=== PATIENT | male | born 1975 | race Caucasian/White ===

== ENCOUNTER 2016-06-02 21:41 | Emergency (ER) | payer OTHER, SELFPAY ==
[2016-06-02] MEDS ORDERED: DILAUDID 1 MG/ML INJECTION IV ONE ×2 (22:04→23:00)
[2016-06-02] MEDS ORDERED: Phenergan 25 MG INJ IV ONE (22:04)
--- NOTE | 2016-06-02 22:10 | ERPHSYRPT ---
- History of Present Illness Time Seen by Provider: 06/02/16 21:58 Historian: patient Exam Limitations: no limitations Patient Subjective Stated Complaint: pt states he has been having constipation and abd pain at home. states he has a hx of diverticulitis Triage Nursing Assessment: pt alert and oriented. answers questions approp. skin pink warm and dry. respirations nonlabored with lungs cta. abd soft and tender in lt upper quad. bowel sounds hyper in all 4 quads. pt states he is passing flatus. Physician History: FOR THE PAST 13 HOURS PT HAS HAD CONSTANT SHARP/DULL LEFT SIDED ABDOMINAL PAIN RADIATING TO THE MID BACK WITH DIARRHEA AND URINARY HESITANCY. PT HAS A HX OF DIVERTICULITIS FIRST DIAGNOSED IN 2013. PT DENIES FEVER, CHEST PAIN, RASH. Allergies/Adverse Reactions: No Known Drug Allergies Allergy (Verified 06/02/16 22:01) Home Medications: Omeprazole 20 MG [Prilosec 20 mg] 20 mg PO DAILY 10/31/14 [History] Fiber [Fiber Choice] 1 tab PO DAILY 10/06/15 [History] Lisinopril 20 mg [Zestril 20 MG] 20 mg PO DAILY 06/02/16 [History] Hx Tetanus, Diphtheria Vaccination/Date Given: No Hx Influenza Vaccination/Date Given: No Hx Pneumococcal Vaccination/Date Given: No Immunizations Up to Date: Yes - Review of Systems Constitutional: No Fever Cardiac: No Chest Pain Abdominal/Gastrointestinal: Abdominal Pain, Diarrhea Genitourinary Symptoms: Hesitancy Musculoskeletal: Back Pain Skin: No Rash All Other Systems: Reviewed and Negative - Past Medical History Pertinent Past Medical History: Yes Neurological History: No Pertinent History ENT History: No Pertinent History Cardiac History: Hypertension Respiratory History: No Pertinent History Endocrine Medical History: No Pertinent History Musculoskeletal History: No Pertinent History GI Medical History: Diverticulitis, Diverticulosis, GERD, Hernia History: No Pertinent History Psycho-Social History: No Pertinent History Male Reproductive Disorders: No Pertinent History - Past Surgical History Past Surgical History: Yes Neuro Surgical History: No Pertinent History Cardiac: No Pertinent History Respiratory: No Pertinent History Gastrointestinal: Cholecystectomy, Hernia Repair Genitourinary: No Pertinent History Musculoskeletal: Other Male Surgical History: No Pertinent History Other Surgical History: cyst removed left knee - Social History Smoking Status: Former smoker Exposure to second hand smoke: Yes Drug Use: none Patient Lives Alone: No - Nursing Vital Signs Nursing Vital Signs: Initial Vital Signs Temperature 98.4 F Pulse Rate 83 Respiratory Rate 16 Blood Pressure [] 127/74 Pain Intensity 4 - Physical Exam General Appearance: alert Eye Exam: PERRL/EOMI Ears, Nose, Throat Exam: pharynx normal, moist mucous membranes Neck Exam: normal inspection Respiratory Exam: lungs clear Cardiovascular Exam: normal heart sounds Gastrointestinal/Abdomen Exam: soft, other (B.S. MODERATELY HYPERACTIVE AND NORMOTONIC) Back Exam: normal range of motion Extremity Exam: normal inspection, No pedal edema Neurologic Exam: alert, cooperative Skin Exam: warm, dry SpO2 Interpretation: normal SpO2: 98 Oxygen Delivery: Room Air - Course Nursing assessment & vital signs reviewed: Yes - CT Exams Abdomen/Pelvis CT Interpretation: Tele-radiologist Report (NO ACUTE FINDINGS.) Ordered Tests: Active Orders 24 hr Category Date Time Status Clean Catch Urine Specimen STAT Care 06/02/16 22:04 Active IV Insertion STAT Care 06/02/16 22:04 Active ABDOMEN AND PELVIS W/0 CONTRAS [CT] Stat Exams 06/02/16 22:05 Taken AMYLASE Stat Lab 06/02/16 22:24 Completed BLOOD CULTURE Stat Lab 06/02/16 22:25 Received CBC W DIFF Stat Lab 06/02/16 22:24 Completed CMP Stat Lab 06/02/16 22:24 Completed LIPASE Stat Lab 06/02/16 22:24 Completed UA Stat Lab 06/02/16 22:30 Completed Medication Summary Generic Name Dose Route Start Last Admin Trade Name Freq PRN Reason Stop Dose Admin Hydromorphone HCl 1 mg 06/02/16 23:00 Dilaudid 1 Mg/Ml Injection IV 06/02/16 23:01 STAT ONE Sodium Chloride 1,000 mls @ 200 mls/hr 06/02/16 22:15 06/02/16 22:34 Sodium Chloride 0.9% 1000 Ml IV 07/02/16 22:14 200 mls/hr .Q5H MARIA ISABEL Administration Sodium Chloride 1,000 mls @ 999 mls/hr 06/02/16 23:00 Sodium Chloride 0.9% 1000 Ml IV 06/03/16 00:00 .Q1H1M STA Discontinued Medications Generic Name Dose Route Start Last Admin Trade Name Freq PRN Reason Stop Dose Admin Hydromorphone HCl 1 mg 06/02/16 22:04 06/02/16 22:36 Dilaudid 1 Mg/Ml Injection IV 06/02/16 22:05 1 mg STAT ONE Administration Hydromorphone HCl Confirm 06/02/16 22:19 Dilaudid 1 Mg/Ml Injection Administered 06/02/16 22:20 Dose 1 mg .ROUTE .STK-MED ONE Sodium Chloride Confirm 06/02/16 22:19 Sodium Chloride 0.9% 1000 Ml Administered 06/02/16 22:20 Dose 1,000 mls @ ud .ROUTE .STK-MED ONE Promethazine HCl 12.5 mg 06/02/16 22:04 06/02/16 22:40 Phenergan 25 Mg Inj IV 06/02/16 22:05 12.5 mg STAT ONE Administration Promethazine HCl Confirm 06/02/16 22:18 Phenergan 25 Mg Inj Administered 06/02/16 22:19 Dose 25 mg .ROUTE .STK-MED ONE Lab/Rad Data: Laboratory Result Diagrams 06/02/16 22:24 06/02/16 22:24 Laboratory Results 06/02/16 06/02/16 06/02/16 Range/Units 22:30 22:24 22:24 WBC 8.2 (4.0-10.5) K/mm3 RBC 4.79 (4.1-5.6) M/mm3 Hgb 13.6 (12.5-18.0) gm/dl Hct 40.2 L (42-50) % MCV 83.9 (78-100) fl MCH 28.4 (26-32) pg MCHC 33.8 (32-36) g/dl RDW 14.1 H (11.5-14.0) % Plt Count 342 (150-450) K/mm3 MPV 10.4 H (6-9.5) fl Gran % 59.7 (36.0-66.0) % Lymphocytes % 27.2 (24.0-44.0) % Monocytes % 10.3 (0.0-12.0) % Eosinophils % 2.4 (0.00-5.0) % Basophils % 0.4 (0.0-0.4) % Basophils # 0.03 (0-0.4) Sodium 124 L (136-145) mEq/L Potassium 3.7 (3.5-5.1) mEq/L Chloride 99 (98-107) mEq/L Carbon Dioxide 28.0 (21-32) mEq/L Anion Gap 0.5 L (5-15) MEQ/L BUN 15 (9-20) mg/dL Creatinine 1.08 (0.55-1.30) mg/dl Estimated GFR > 60 ML/MIN Glucose 119 H (70-110) MG/DL Calcium 8.7 (8.5-10.1) mg/dL Total Bilirubin 0.1 L (0.2-1.0) mg/dL AST 11 L (15-37) U/L ALT 17 (12-78) U/L Alkaline Phosphatase 113 (46-116) U/L Serum Total Protein 7.2 (6.4-8.2) gm/dL Albumin 3.2 L (3.4-5.0) g/dL Amylase 34 (25-115) U/L Lipase 133 (73-393) U/L Ur Collection Type CLEAN CATCH Urine Color YELLOW (YELLOW) Urine Appearance CLEAR (CLEAR) Urine pH 7.5 (5-6) Ur Specific [place] 1.015 (1.005-1.025) Urine Protein NEGATIVE (Negative) Urine Glucose (UA) NEGATIVE (NEGATIVE) mg/dL Urine Ketones NEGATIVE (NEGATIVE) Urine Nitrite NEGATIVE (NEGATIVE) Urine Bilirubin NEGATIVE (NEGATIVE) Urine Urobilinogen 0.2 (0-1) mg/dL Urine WBC (Auto) NEGATIVE (NEGATIVE) Urine RBC (Auto) NEGATIVE (0-5) Be/ul Specimen Received 06/02/160 - Departure Time of Disposition: 23:02 Departure Disposition: Home Clinical Impression: ABDOMINAL PAIN, DIARRHEA, HYPONATREMIA Condition: Fair Critical Care Time: No Instructions: Abdominal Pain-Adult Additional Instructions: FOLLOW UP WITH PRIVATE DOCTOR TOMORROW.
[2016-06-02] MEDS ORDERED: Sodium Chloride 0.9% 1000 ML 1,000 ML IV SCH (22:15)
[2016-06-02] MEDS ORDERED: Phenergan 25 MG INJ ONE (22:18)
[2016-06-02] MEDS ORDERED: Sodium Chloride 0.9% 1000 ML 1,000 ML ONE (22:19)
[2016-06-02] MEDS ORDERED: DILAUDID 1 MG/ML INJECTION ONE ×2 (22:19→23:06)
[2016-06-02 22:25] LABS: BASOPHIL % 0.4 % (0.0-0.4); Eosinophil % 2.4 % (0.00-5.0); Granulocytes % 59.7 % (36.0-66.0); Lymphocytes % 27.2 % (24.0-44.0); Mean Cell Volume 83.9 fl (78-100); Mean Corpuscular Hemoglobin 28.4 pg (26-32); Mean Platelet Volume 10.4 fl (6-9.5); Monocytes % 10.3 % (0.0-12.0); Platelet Count 342 K/mm3 (150-450); Red Blood Count 4.79 M/mm3 (4.1-5.6); Red Cell Distribution Width 14.1 % (11.5-14.0); White Blood Count 8.2 K/mm3 (4.0-10.5)
[2016-06-02 22:31] LABS: COMPLETE URINE MICROSCOPIC? NO; Collection Type CLEAN CATCH; Ph 7.5 (5-6)
[2016-06-02 22:59] LABS: ALBUMIN 3.2 g/dL (3.4-5.0); ALKALINE PHOSPHATASE 113 U/L (46-116); ANION GAP 0.5 MEQ/L (5-15); BILIRUBIN,TOTAL 0.1 mg/dL (0.2-1.0); BLOOD UREA NITROGEN 15 mg/dL (9-20); CHLORIDE 99 mEq/L (98-107); Glucose 119 MG/DL (70-110); LIPASE 133 U/L (73-393); Potassium 3.7 mEq/L (3.5-5.1); SGOT/AST 11 U/L (15-37); SGPT/ALT 17 U/L (12-78); SODIUM 124 mEq/L (136-145); Total Protein 7.2 gm/dL (6.4-8.2)
[2016-06-02] MEDS ORDERED: Sodium Chloride 0.9% 1000 ML 1,000 ML IV STA (23:00)
[2016-06-03 00:21] VITALS: BP 136/78; PULSE 88; O2SAT 99
--- NOTE | 2016-06-03 08:38 | XRAY ---
Indication: Left abdominal and low back pain. Nausea and diarrhea. History of diverticulitis. Multiple contiguous axial images obtained through the abdomen and pelvis without contrast as ordered. Comparison: August 19, 2015 Lung bases remain clear with stable lingular calcified granuloma. Heart is not enlarged. Stomach is again distended with food/fluid. Noncontrasted bowel loops appear nonobstructed. Again scattered colonic diverticulosis without diverticulitis. Normal appendix. There has been interval cholecystectomy. No free fluid/air. Remaining liver, pancreas, spleen, adrenal glands, kidneys, ureters, bladder, and aorta appear unremarkable for noncontrast exam. Osseous structures intact with stable left L4 spondylolysis without spondylolisthesis. Impression: 1. No acute intra-abdominal/pelvic abnormalities on this noncontrast exam. 2. Stable colonic diverticulosis and left L4 spondylolysis. Comment: Preliminary interpretation was made by [facility]. No discrepancy. CT DI 23.68
== END 2016-06-03 00:21 | disposition home or self-care (01) ==
LOC: ED 21:41
DX: R10.9 Unspecified abdominal pain (principal); R19.7 Diarrhea, unspecified; E87.1 Hypo-osmolality and hyponatremia; Z79.899 Other long term (current) drug therapy; I10 Essential (primary) hypertension
CPT/HCPCS: 36000; 36415; 74176; 80053; 81002; 82150; 83690; 85025; 87040; 96360; 96361; 96374; 96375; 99283; J1170; J2550

== ENCOUNTER 2016-08-20 18:14 | Emergency (ER) | payer OTHER, SELFPAY ==
[2016-08-20 19:00] LABS: BASOPHIL % 0.2 % (0.0-0.4); Eosinophil % 1.8 % (0.00-5.0); Granulocytes % 71.4 % (36.0-66.0); Lymphocytes % 15.7 % (24.0-44.0); Mean Cell Volume 83.9 fl (78-100); Mean Platelet Volume 10.4 fl (6-9.5); Monocytes % 10.9 % (0.0-12.0); Platelet Count 279 K/mm3 (150-450); Red Blood Count 4.66 M/mm3 (4.1-5.6); Red Cell Distribution Width 14.1 % (11.5-14.0); White Blood Count 9.4 K/mm3 (4.0-10.5)
[2016-08-20 19:07] LABS: Collection Type CLEAN CATCH
[2016-08-20 19:08] LABS: COMPLETE URINE MICROSCOPIC? NO
[2016-08-20] MEDS ORDERED: Zofran 4 MG/2 ML VIAL IV ONE (19:10)
[2016-08-20] MEDS ORDERED: Sodium Chloride 0.9% 1000 ML 1,000 ML IV STA (19:10)
[2016-08-20] MEDS ORDERED: Zofran 4 MG/2 ML VIAL ONE (19:15)
[2016-08-20] MEDS ORDERED: Sodium Chloride 0.9% 1000 ML 1,000 ML ONE (19:15)
[2016-08-20 19:18] LABS: ALBUMIN 3.6 g/dL (3.4-5.0); ALKALINE PHOSPHATASE 93 U/L (46-116); ANION GAP 13.8 MEQ/L (5-15); BILIRUBIN,TOTAL 0.5 mg/dL (0.2-1.0); BLOOD UREA NITROGEN 13 mg/dL (9-20); CHLORIDE 99 mEq/L (98-107); Carbon Dioxide 26.6 mEq/L (21-32); Glucose 143 MG/DL (70-110); LIPASE 83 U/L (73-393); Potassium 3.5 mEq/L (3.5-5.1); SGOT/AST 13 U/L (15-37); SGPT/ALT 27 U/L (12-78); SODIUM 136 mEq/L (136-145); Total Protein 8.1 gm/dL (6.4-8.2)
--- NOTE | 2016-08-20 19:18 | ERPHSYRPT ---
- History of Present Illness Time Seen by Provider: 08/20/16 19:15 Historian: patient Exam Limitations: no limitations Patient Subjective Stated Complaint: pt states he has a Hx of Diverticulitis and thinks he may be having symptoms of that. denies any fever. states he has pain across lower abdomen worse in left lower quad. Triage Nursing Assessment: pt pink, warm, dry. abdomen soft tender left lower quad. bowel sounds present in all 4 quads. Physician History: 89-year-old male came to the emergency room with complaining of abdominal pain generalized last few days. Patient pain got worse in last 2 days. Patient is complaining of pain mainly in the left upper quadrant. Patient denies any nausea vomiting but complaining of constipation. Timing/Duration: yesterday Quality: cramping Abdominal Pain Onset Location: LUQ, generalized abdomen Pain Radiation: no radiation Severity of Pain-Max: moderate Severity of Pain-Current: moderate Modifying Factors: Improves With: nothing Associated Symptoms: denies symptoms Previous symptoms: same symptoms as today Allergies/Adverse Reactions: No Known Drug Allergies Allergy (Verified 08/20/16 18:43) Home Medications: Omeprazole 20 MG [Prilosec 20 mg] 20 mg PO DAILY 10/31/14 [History] Fiber [Fiber Choice] 1 tab PO DAILY 10/06/15 [History] Lisinopril 20 mg [Zestril 20 MG] 20 mg PO DAILY 06/02/16 [History] Docosahexanoic Acid [Atabex Dha 200] 200 mg PO DAILY 08/20/16 [History] Hx Tetanus, Diphtheria Vaccination/Date Given: Yes ([place]) Hx Influenza Vaccination/Date Given: No Hx Pneumococcal Vaccination/Date Given: No Immunizations Up to Date: Yes - Review of Systems Constitutional: No Symptoms Eyes: No Symptoms Ears, Nose, & Throat: No Symptoms Respiratory: No Symptoms Cardiac: No Symptoms Abdominal/Gastrointestinal: Abdominal Pain, Constipation Genitourinary Symptoms: No Symptoms Musculoskeletal: No Symptoms Skin: No Symptoms Neurological: No Symptoms - Past Medical History Pertinent Past Medical History: Yes Neurological History: No Pertinent History ENT History: No Pertinent History Cardiac History: Hypertension Respiratory History: No Pertinent History Endocrine Medical History: No Pertinent History Musculoskeletal History: No Pertinent History GI Medical History: Diverticulitis, Diverticulosis, GERD, Hernia History: No Pertinent History Psycho-Social History: No Pertinent History Male Reproductive Disorders: No Pertinent History - Past Surgical History Past Surgical History: Yes Neuro Surgical History: No Pertinent History Cardiac: No Pertinent History Respiratory: No Pertinent History Gastrointestinal: Cholecystectomy, Hernia Repair Genitourinary: No Pertinent History Musculoskeletal: Other Male Surgical History: No Pertinent History Other Surgical History: cyst removed left knee - Social History Smoking Status: Former smoker Exposure to second hand smoke: No Drug Use: none Patient Lives Alone: No - Nursing Vital Signs Nursing Vital Signs: Initial Vital Signs Temperature 98.1 F Temperature Source Oral Pulse Rate 90 Respiratory Rate 18 Blood Pressure [Right Arm] 154/94 Pain Intensity 7 - Physical Exam General Appearance: no apparent distress, alert Eye Exam: PERRL/EOMI, eyes nml inspection Ears, Nose, Throat Exam: normal ENT inspection, pharynx normal, moist mucous membranes Neck Exam: normal inspection, non-tender, supple, full range of motion Respiratory Exam: normal breath sounds, lungs clear, No respiratory distress Cardiovascular Exam: regular rate/rhythm, normal heart sounds Gastrointestinal/Abdomen Exam: soft, normal bowel sounds, No tenderness, No distention, No mass, No guarding, No ecchymosis, No pulsatile mass, No rebound, No hepatomegaly, No organomegaly, No splenomegaly Rectal Exam: deferred Back Exam: normal inspection, normal range of motion, No CVA tenderness, No vertebral tenderness Extremity Exam: normal inspection, normal range of motion, pelvis stable Neurologic Exam: alert, oriented x 3, cooperative, normal mood/affect, nml cerebellar function, sensation nml, No motor deficits Skin Exam: normal color, warm, dry SpO2: 99 Oxygen Delivery: Room Air - Course Nursing assessment & vital signs reviewed: Yes Ordered Tests: Active Orders 24 hr Category Date Time Status Clean Catch Urine Specimen STAT Care 08/20/16 18:41 Active IV Insertion STAT Care 08/20/16 18:41 Active CBC W DIFF Stat Lab 08/20/16 18:56 Completed CMP Stat Lab 08/20/16 18:56 Completed LIPASE Stat Lab 08/20/16 18:56 Completed Lactic Acid Urgent Lab 08/20/16 19:10 Completed UA Stat Lab 08/20/16 18:56 Completed Urine Triage Profile Stat Lab 08/20/16 19:10 Completed Medication Summary Generic Name Dose Route Start Last Admin Trade Name Freq PRN Reason Stop Dose Admin Sodium Chloride 1,000 mls @ 999 mls/hr 08/20/16 19:10 08/20/16 19:20 Sodium Chloride 0.9% 1000 Ml IV 08/20/16 20:10 999 mls/hr .Q1H1M STA Administration Morphine Sulfate 4 mg 08/20/16 19:53 Morphine Sulfate 4 Mg Inj IV 08/20/16 19:54 STAT ONE Discontinued Medications Generic Name Dose Route Start Last Admin Trade Name Anupam PRN Reason Stop Dose Admin Sodium Chloride Confirm 08/20/16 19:15 Sodium Chloride 0.9% 1000 Ml Administered 08/20/16 19:16 Dose 1,000 mls @ ud .ROUTE .STK-MED ONE Ondansetron HCl 4 mg 08/20/16 19:10 08/20/16 19:20 Zofran 4 Mg/2 Ml Vial IV 08/20/16 19:11 4 mg STAT ONE Administration Ondansetron HCl Confirm 08/20/16 19:15 Zofran 4 Mg/2 Ml Vial Administered 08/20/16 19:16 Dose 4 mg .ROUTE .STK-MED ONE Lab/Rad Data: Laboratory Result Diagrams 08/20/16 18:56 08/20/16 18:56 Laboratory Results 08/20/16 08/20/16 08/20/16 Range/Units 19:10 19:10 18:56 WBC (4.0-10.5) K/mm3 RBC (4.1-5.6) M/mm3 Hgb (12.5-18.0) gm/dl Hct (42-50) % MCV (78-100) fl MCH (26-32) pg MCHC (32-36) g/dl RDW (11.5-14.0) % Plt Count (150-450) K/mm3 MPV (6-9.5) fl Gran % (36.0-66.0) % Lymphocytes % (24.0-44.0) % Monocytes % (0.0-12.0) % Eosinophils % (0.00-5.0) % Basophils % (0.0-0.4) % Basophils # (0-0.4) Sodium 136 (136-145) mEq/L Potassium 3.5 (3.5-5.1) mEq/L Chloride 99 (98-107) mEq/L Carbon Dioxide 26.6 (21-32) mEq/L Anion Gap 13.8 (5-15) MEQ/L BUN 13 (9-20) mg/dL Creatinine 0.90 (0.55-1.30) mg/dl Estimated GFR > 60 ML/MIN Glucose 143 H (70-110) MG/DL Lactic Acid 0.9 (0.4-2.0) Calcium 8.8 (8.5-10.1) mg/dL Total Bilirubin 0.5 (0.2-1.0) mg/dL AST 13 L (15-37) U/L ALT 27 (12-78) U/L Alkaline Phosphatase 93 (46-116) U/L Serum Total Protein 8.1 (6.4-8.2) gm/dL Albumin 3.6 (3.4-5.0) g/dL Lipase 83 (73-393) U/L Ur Collection Type Urine Color (YELLOW) Urine Appearance (CLEAR) Urine pH (5-6) Ur Specific [place] (1.005-1.025) Urine Protein (Negative) Urine Glucose (UA) (NEGATIVE) mg/dL Urine Ketones (NEGATIVE) Urine Nitrite (NEGATIVE) Urine Bilirubin (NEGATIVE) Urine Urobilinogen (0-1) mg/dL Urine WBC (Auto) (NEGATIVE) Urine RBC (Auto) (0-5) Be/ul Urine Opiates Level NEG. (NEGATIVE) Ur Methadone NEG. (NEGATIVE) Urine Barbiturates NEG. (NEGATIVE) Ur Phencyclidine (PCP) NEG. (NEGATIVE) Urine Amphetamine NEG. (NEGATIVE) U Benzodiazepine Level NEG. (NEGATIVE) Urine Cocaine NEG. (NEGATIVE) Urine Marijuana (THC) NEG. (NEGATIVE) Specimen Received 08/20/16 08/20/16 Range/Units 18:56 18:56 WBC 9.4 (4.0-10.5) K/mm3 RBC 4.66 (4.1-5.6) M/mm3 Hgb 13.5 (12.5-18.0) gm/dl Hct 39.1 L (42-50) % MCV 83.9 (78-100) fl MCH 29.0 (26-32) pg MCHC 34.5 (32-36) g/dl RDW 14.1 H (11.5-14.0) % Plt Count 279 (150-450) K/mm3 MPV 10.4 H (6-9.5) fl Gran % 71.4 H (36.0-66.0) % Lymphocytes % 15.7 L (24.0-44.0) % Monocytes % 10.9 (0.0-12.0) % Eosinophils % 1.8 (0.00-5.0) % Basophils % 0.2 (0.0-0.4) % Basophils # 0.02 (0-0.4) Sodium (136-145) mEq/L Potassium (3.5-5.1) mEq/L Chloride (98-107) mEq/L Carbon Dioxide (21-32) mEq/L Anion Gap (5-15) MEQ/L BUN (9-20) mg/dL Creatinine (0.55-1.30) mg/dl Estimated GFR ML/MIN Glucose (70-110) MG/DL Lactic Acid (0.4-2.0) Calcium (8.5-10.1) mg/dL Total Bilirubin (0.2-1.0) mg/dL AST (15-37) U/L ALT (12-78) U/L Alkaline Phosphatase (46-116) U/L Serum Total Protein (6.4-8.2) gm/dL Albumin (3.4-5.0) g/dL Lipase (73-393) U/L Ur Collection Type CLEAN CATCH Urine Color YELLOW (YELLOW) Urine Appearance CLEAR (CLEAR) Urine pH 7.0 (5-6) Ur Specific [place] 1.015 (1.005-1.025) Urine Protein NEGATIVE (Negative) Urine Glucose (UA) NEGATIVE (NEGATIVE) mg/dL Urine Ketones NEGATIVE (NEGATIVE) Urine Nitrite NEGATIVE (NEGATIVE) Urine Bilirubin NEGATIVE (NEGATIVE) Urine Urobilinogen 0.2 (0-1) mg/dL Urine WBC (Auto) NEGATIVE (NEGATIVE) Urine RBC (Auto) NEGATIVE (0-5) Be/ul Urine Opiates Level (NEGATIVE) Ur Methadone (NEGATIVE) Urine Barbiturates (NEGATIVE) Ur Phencyclidine (PCP) (NEGATIVE) Urine Amphetamine (NEGATIVE) U Benzodiazepine Level (NEGATIVE) Urine Cocaine (NEGATIVE) Urine Marijuana (THC) (NEGATIVE) Specimen Received 08/20/16 1900 - Progress Progress: improved Counseled pt/family regarding: lab results, diagnosis, need for follow-up - Departure Time of Disposition: 19:58 Departure Disposition: Home Clinical Impression: Abdominal pain in male, Diverticul disease small and large intestine, no perforati or abscess Condition: Stable Critical Care Time: Yes Critical Care Time(excluding separately billable procedures): 30-74 minutes Referrals: WALI LONDON [Primary Care Provider] - Instructions: Abdominal Pain-Adult, Diverticulitis Additional Instructions: ABDOMINAL PAIN 1. There are several different causes for abdominal pain, some of which may not be able to be identified on initial examination. 2. The important thing to remember is that bodily functions can change in a short period of time. If you notice any of the following symptoms, return to the emergency department or consult your doctor immediately: A. Worsening pain or no improvement in the next 12 hours. B. Increasing, severe abdominal pain C. Blood in stool D. Black stools E. Persistent vomiting F. Fever or chills or other symptoms. Continue antibiotics Dr London prescribed. Prescriptions: Dicyclomine HCl 20 mg [Bentyl 20 mg] 20 mg PO TID #15 tablet
[2016-08-20] MEDS ORDERED: MORPHINE SULFATE 4 MG INJ IV ONE (19:53)
[2016-08-20] MEDS ORDERED: MORPHINE SULFATE 4 MG INJ ONE (20:03)
[2016-08-20] MEDS ORDERED: ROCEPHIN 1 Gm-D5w 50 ml Bag** 50 ML IV ONE ×2 (20:04)
[2016-08-20] MEDS ORDERED: Hydromorphone 1 mg/ml Ampule IV ONE (20:18)
[2016-08-20] MEDS ORDERED: Hydromorphone 1 mg/ml Ampule ONE (20:45)
[2016-08-20 21:14] VITALS: BP 149/74; PULSE 100; O2SAT 96
== END 2016-08-20 21:14 | disposition home or self-care (01) ==
LOC: ED 18:14
DX: R10.9 Unspecified abdominal pain (principal); K57.12 Diverticulitis of small intestine without perforation or abscess without bleeding; K57.32 Diverticulitis of large intestine without perforation or abscess without bleeding; R10.12 Left upper quadrant pain; R10.84 Generalized abdominal pain; Z79.899 Other long term (current) drug therapy
CPT/HCPCS: 36000; 36415; 80053; 80307; 81002; 83605; 83690; 85025; 96360; 96365; 96374; 96375; 99284; J0696; J1170; J2270; J2405

== ENCOUNTER 2017-05-01 12:08 | Emergency (ER) | payer BC, OTHER ==
--- NOTE | 2017-05-01 12:39 | ERPHSYRPT ---
- History of Present Illness Time Seen by Provider: 05/01/17 12:33 Historian: patient Exam Limitations: no limitations Patient Subjective Stated Complaint: states lower abd pain for two days. states has hx diverticulosis. denies n/v/d. Triage Nursing Assessment: skin w/d, color normal, resp easy. abd large, round. abd soft, tender in lower abd. normal bowel sounds. Physician History: The patient is a 41-year-old male with his complaining of mild abdominal pain that began yesterday. It continues today. It is moved from his upper abdomen than down to the lower abdomen. He is concerned that he is having a flareup of diverticulitis. He denies nausea, vomiting, or diarrhea. He had a normal bowel movement yesterday and had a small one today. He had chills last night. His past medical history is significant for diverticulitis, hypertension , GERD, cholecystectomy, and hernia repair. Timing/Duration: yesterday, gradual onset Activities at Onset: none Quality: aching Abdominal Pain Onset Location: RLQ, LLQ Pain Radiation: back Severity of Pain-Max: mild Severity of Pain-Current: mild Modifying Factors: Improves With: nothing Associated Symptoms: denies symptoms, No diarrhea Previous symptoms: same symptoms as today Allergies/Adverse Reactions: No Known Drug Allergies Allergy (Verified 05/01/17 12:19) Home Medications: Omeprazole 20 MG [Prilosec 20 mg] 20 mg PO DAILY 10/31/14 [History] Fiber [Fiber Choice] 1 tab PO DAILY 10/06/15 [History] Lisinopril 20 mg [Zestril 20 MG] 20 mg PO DAILY 06/02/16 [History] Hx Tetanus, Diphtheria Vaccination/Date Given: Yes (2016) Hx Influenza Vaccination/Date Given: Yes Hx Pneumococcal Vaccination/Date Given: No - Review of Systems Constitutional: Chills Eyes: No Symptoms Ears, Nose, & Throat: No Symptoms Respiratory: No Cough, No Dyspnea Cardiac: No Chest Pain, No Edema, No Syncope Abdominal/Gastrointestinal: Abdominal Pain, No Nausea, No Vomiting, No Diarrhea Genitourinary Symptoms: No Dysuria Musculoskeletal: No Back Pain, No Neck Pain Skin: No Rash Neurological: No Dizziness, No Focal Weakness, No Sensory Changes Psychological: No Symptoms Endocrine: No Symptoms Hematologic/Lymphatic: No Symptoms Immunological/Allergic: No Symptoms All Other Systems: Reviewed and Negative - Past Medical History Pertinent Past Medical History: Yes Neurological History: No Pertinent History ENT History: No Pertinent History Cardiac History: Hypertension Respiratory History: No Pertinent History Endocrine Medical History: No Pertinent History Musculoskeletal History: No Pertinent History GI Medical History: Diverticulitis, Diverticulosis, GERD, Hernia History: No Pertinent History Psycho-Social History: No Pertinent History Male Reproductive Disorders: No Pertinent History - Past Surgical History Past Surgical History: Yes Neuro Surgical History: No Pertinent History Cardiac: No Pertinent History Respiratory: No Pertinent History Gastrointestinal: Cholecystectomy, Hernia Repair Genitourinary: No Pertinent History Musculoskeletal: Other Male Surgical History: No Pertinent History Other Surgical History: cyst removed left knee - Social History Smoking Status: Current some day smoker Exposure to second hand smoke: No Drug Use: none Patient Lives Alone: No - Nursing Vital Signs Nursing Vital Signs: Initial Vital Signs Temperature 97.4 F 05/01/17 12:14 Pulse Rate 87 05/01/17 12:14 Respiratory Rate 16 05/01/17 12:14 Blood Pressure 143/83 05/01/17 12:14 O2 Sat by Pulse Oximetry 96 05/01/17 12:14 Pain Scale Pain Intensity 2 - Physical Exam General Appearance: no apparent distress, alert Eye Exam: PERRL/EOMI, eyes nml inspection Ears, Nose, Throat Exam: normal ENT inspection, pharynx normal, moist mucous membranes Neck Exam: normal inspection, non-tender, supple, full range of motion Respiratory Exam: normal breath sounds, lungs clear, No respiratory distress Cardiovascular Exam: regular rate/rhythm, normal heart sounds Gastrointestinal/Abdomen Exam: soft, other (hyperactive BS) Rectal Exam: not done Back Exam: normal inspection, normal range of motion, No CVA tenderness, No vertebral tenderness Extremity Exam: normal inspection, normal range of motion, pelvis stable Neurologic Exam: alert, oriented x 3, cooperative, normal mood/affect, nml cerebellar function, sensation nml, No motor deficits Skin Exam: normal color, warm, dry SpO2 Interpretation: normal SpO2: 96 Oxygen Delivery: Room Air - CT Exams Abdomen/Pelvis CT Interpretation: Tele-radiologist Report, Normal Appendix, Other (No diverticulitis. Possible mesenteric panniculitis. Per Dr Arcos) Ordered Tests: Active Orders 24 hr Category Date Time Status IV Insertion STAT Care 05/01/17 12:42 Active ABDOMEN AND PELVIS W/0 CONTRAS [CT] Stat Exams 05/01/17 12:42 Taken CBC W DIFF Stat Lab 05/01/17 12:30 Completed CMP Stat Lab 05/01/17 12:30 Completed LIPASE Stat Lab 05/01/17 12:30 Completed Lactic Acid Stat Lab 05/01/17 12:42 Completed UA W/RFX UR CULTURE Stat Lab 05/01/17 12:42 Completed Medication Summary Discontinued Medications Generic Name Dose Route Start Last Admin Trade Name Anupam PRN Reason Stop Dose Admin Sodium Chloride 1,000 mls @ 999 mls/hr 05/01/17 12:42 05/01/17 13:07 Sodium Chloride 0.9% 1000 Ml IV 05/01/17 13:42 999 mls/hr .Q1H1M STA Administration Sodium Chloride Confirm 05/01/17 12:52 Sodium Chloride 0.9% 1000 Ml Administered 05/01/17 12:53 Dose 1,000 mls @ ud .ROUTE .STK-MED ONE Ketorolac Tromethamine 30 mg 05/01/17 12:42 05/01/17 13:07 Toradol 30 Mg Injection IV 05/01/17 12:43 30 mg STAT ONE Administration Ketorolac Tromethamine Confirm 05/01/17 12:52 Toradol 30 Mg Injection Administered 05/01/17 12:53 Dose 30 mg .ROUTE .STK-MED ONE Potassium Chloride 10 meq 05/01/17 13:33 05/01/17 13:55 Klor Con 10 Meq PO 05/01/17 13:34 10 meq STAT ONE Administration Potassium Chloride Confirm 05/01/17 13:53 Klor Con 10 Meq Administered 05/01/17 13:54 Dose 10 meq PO .STK-MED ONE Lab/Rad Data: Laboratory Result Diagrams 05/01/17 12:30 05/01/17 12:30 Laboratory Results 05/01/17 05/01/17 05/01/17 Range/Units 12:42 12:42 12:30 WBC (4.0-10.5) K/mm3 RBC (4.1-5.6) M/mm3 Hgb (12.5-18.0) gm/dl Hct (42-50) % MCV (78-100) fl MCH (26-32) pg MCHC (32-36) g/dl RDW (11.5-14.0) % Plt Count (150-450) K/mm3 MPV (6-9.5) fl Gran % (36.0-66.0) % Lymphocytes % (24.0-44.0) % Monocytes % (0.0-12.0) % Eosinophils % (0.00-5.0) % Basophils % (0.0-0.4) % Basophils # (0-0.4) Sodium 135 L (136-145) mEq/L Potassium 3.4 L (3.5-5.1) mEq/L Chloride 103 (98-107) mEq/L Carbon Dioxide 23.2 (21-32) mEq/L Anion Gap 12.5 (5-15) MEQ/L BUN 16 (9-20) mg/dL Creatinine 0.99 (0.55-1.30) mg/dl Estimated GFR > 60 ML/MIN Glucose 122 H (70-110) MG/DL Lactic Acid 0.9 (0.4-2.0) Calcium 8.1 L (8.5-10.1) mg/dL Total Bilirubin 0.40 (0.2-1.0) mg/dL AST 12 L (15-37) U/L ALT 24 (12-78) U/L Alkaline Phosphatase 88 (46-116) U/L Serum Total Protein 7.2 (6.4-8.2) gm/dL Albumin 3.3 L (3.4-5.0) g/dL Lipase 68 L (73-393) U/L Ur Collection Type VOID Urine Color YELLOW (YELLOW) Urine Appearance CLEAR (CLEAR) Urine pH 5.0 (5-6) Ur Specific [place] 1.005 (1.005-1.025) Urine Protein NEGATIVE (Negative) Urine Ketones NEGATIVE (NEGATIVE) Urine Blood NEGATIVE (0-5) Be/ul Urine Nitrite NEGATIVE (NEGATIVE) Urine Bilirubin NEGATIVE (NEGATIVE) Urine Urobilinogen NORMAL (0-1) mg/dL Ur Leukocyte Esterase NEGATIVE (NEGATIVE) Urine Culture Reflexed NO (NO) Urine Glucose NEGATIVE (NEGATIVE) mg/dL Specimen Received 05/01/17 1300 05/01/17 Range/Units 12:30 WBC 7.7 (4.0-10.5) K/mm3 RBC 4.79 (4.1-5.6) M/mm3 Hgb 13.7 (12.5-18.0) gm/dl Hct 40.6 L (42-50) % MCV 84.8 (78-100) fl MCH 28.6 (26-32) pg MCHC 33.7 (32-36) g/dl RDW 13.5 (11.5-14.0) % Plt Count 254 (150-450) K/mm3 MPV 10.6 H (6-9.5) fl Gran % 80.5 H (36.0-66.0) % Lymphocytes % 11.1 L (24.0-44.0) % Monocytes % 7.5 (0.0-12.0) % Eosinophils % 0.8 (0.00-5.0) % Basophils % 0.1 (0.0-0.4) % Basophils # 0.01 (0-0.4) Sodium (136-145) mEq/L Potassium (3.5-5.1) mEq/L Chloride (98-107) mEq/L Carbon Dioxide (21-32) mEq/L Anion Gap (5-15) MEQ/L BUN (9-20) mg/dL Creatinine (0.55-1.30) mg/dl Estimated GFR ML/MIN Glucose (70-110) MG/DL Lactic Acid (0.4-2.0) Calcium (8.5-10.1) mg/dL Total Bilirubin (0.2-1.0) mg/dL AST (15-37) U/L ALT (12-78) U/L Alkaline Phosphatase (46-116) U/L Serum Total Protein (6.4-8.2) gm/dL Albumin (3.4-5.0) g/dL Lipase (73-393) U/L Ur Collection Type Urine Color (YELLOW) Urine Appearance (CLEAR) Urine pH (5-6) Ur Specific [place] (1.005-1.025) Urine Protein (Negative) Urine Ketones (NEGATIVE) Urine Blood (0-5) Be/ul Urine Nitrite (NEGATIVE) Urine Bilirubin (NEGATIVE) Urine Urobilinogen (0-1) mg/dL Ur Leukocyte Esterase (NEGATIVE) Urine Culture Reflexed (NO) Urine Glucose (NEGATIVE) mg/dL Specimen Received - Progress Progress: improved Counseled pt/family regarding: lab results, diagnosis, need for follow-up, rad results - Departure Time of Disposition: 14:02 Departure Disposition: Home Clinical Impression: Abdominal pain, Mesenteric panniculitis, Hypokalemia Condition: Stable Critical Care Time: No Referrals: WALI MONTERO [Primary Care Provider] - Additional Instructions: You have abdominal pain and hypo-kalemia. On the CT scan of your abdomen and pelvis there is possible evidence for mesenteric panniculitis. You were given Toradol 30 mg and fluids by IV in the ER. You were also given potassium 10 mEq orally. Continue to take Tylenol as needed. Follow up tomorrow.
[2017-05-01] MEDS ORDERED: TORAdol 30 mg Injection IV ONE (12:42)
[2017-05-01] MEDS ORDERED: Sodium Chloride 0.9% 1000 ML 1,000 ML IV STA (12:42)
[2017-05-01 12:52] LABS: BASOPHIL % 0.1 % (0.0-0.4); Eosinophil % 0.8 % (0.00-5.0); Granulocytes % 80.5 % (36.0-66.0); Lymphocytes % 11.1 % (24.0-44.0); Mean Cell Volume 84.8 fl (78-100); Mean Corpuscular Hemoglobin 28.6 pg (26-32); Mean Platelet Volume 10.6 fl (6-9.5); Monocytes % 7.5 % (0.0-12.0); Platelet Count 254 K/mm3 (150-450); Red Blood Count 4.79 M/mm3 (4.1-5.6); Red Cell Distribution Width 13.5 % (11.5-14.0); White Blood Count 7.7 K/mm3 (4.0-10.5)
[2017-05-01] MEDS ORDERED: TORAdol 30 mg Injection ONE (12:52)
[2017-05-01] MEDS ORDERED: Sodium Chloride 0.9% 1000 ML 1,000 ML ONE (12:52)
[2017-05-01 13:01] LABS: ALBUMIN 3.3 g/dL (3.4-5.0); ALKALINE PHOSPHATASE 88 U/L (46-116); ANION GAP 12.5 MEQ/L (5-15); BLOOD UREA NITROGEN 16 mg/dL (9-20); CHLORIDE 103 mEq/L (98-107); Carbon Dioxide 23.2 mEq/L (21-32); Glucose 122 MG/DL (70-110); LIPASE 68 U/L (73-393); Potassium 3.4 mEq/L (3.5-5.1); SGOT/AST 12 U/L (15-37); SGPT/ALT 24 U/L (12-78); SODIUM 135 mEq/L (136-145); Total Protein 7.2 gm/dL (6.4-8.2)
[2017-05-01 13:16] LABS: ADD URINE CULTURE? NO (NO); Bilirubin NEGATIVE (NEGATIVE); Blood NEGATIVE Ery/ul (0-5); COMPLETE URINE MICROSCOPIC? NO; Collection Type VOID; Glucose NEGATIVE (NEGATIVE); Leukocyte Esterase NEGATIVE (NEGATIVE)
[2017-05-01] MEDS ORDERED: Klor Con 10 MEQ PO ONE ×2 (13:33→13:53)
[2017-05-01 14:19] VITALS: BP 124/77; PULSE 77; O2SAT 100
--- NOTE | 2017-05-01 20:10 | XRAY ---
Indication: Left lower pelvic pain. History of diverticulitis. Multiple contiguous axial images obtained through the abdomen and pelvis without contrast as ordered. Comparison: June 02, 2016. Lung bases remain clear with stable lingular calcified granuloma. Heart is not enlarged. Noncontrasted bowel loops appear nonobstructed. Again scattered colonic diverticulosis without diverticulitis. Normal appendix. Again previous cholecystectomy. No free fluid/air. Remaining liver, pancreas, spleen, adrenal glands, kidneys, ureters, bladder, and aorta appear unremarkable for noncontrast exam. Osseous structures intact with stable left L4 spondylolysis without spondylolisthesis. Impression: 1. Stable colonic diverticulosis and left L4 spondylolysis. 2. No new/acute intra-abdominal/pelvic abnormalities on this noncontrast exam. Comment: Preliminary interpretation was made by [facility]. No discrepancy. CT DI 23.68
== END 2017-05-01 14:19 | disposition home or self-care (01) ==
LOC: ED 12:08
DX: R10.31 Right lower quadrant pain (principal); R10.32 Left lower quadrant pain; K65.4 Sclerosing mesenteritis; E87.6 Hypokalemia; I10 Essential (primary) hypertension
CPT/HCPCS: 36000; 36415; 74176; 80053; 81002; 83605; 83690; 85025; 96360; 96374; 99284; J1885; A9270-GY

== ENCOUNTER 2018-04-26 16:10 | Emergency (ER) | payer BC ==
[2018-04-26] MEDS ORDERED: TORAdol 30 mg Injection IV ONE (16:27)
[2018-04-26] MEDS ORDERED: Sodium Chloride 0.9% 1000 ML 1,000 ML IV STA (16:27)
--- NOTE | 2018-04-26 16:37 | ERPHSYRPT ---
- History of Present Illness Time Seen by Provider: 04/26/18 16:27 Historian: patient Exam Limitations: no limitations Patient Subjective Stated Complaint: Pain in left lower and upper quadrant, pain with palpatation, steady pain that doesn't go away Triage Nursing Assessment: Pt c/o of left lower and upper quadrant pain in the abdomen, pain with palpatation, steady pain that doesn't go away, diarhea with not much being expelled, tachycardic, denies N&V, pulses normal, bowel sounds heard in all 4 quadrants, denies any issues with urinating, no food intake today due to the pain, hx of diverticulosis Physician History: This is a 42-year-old white male with history of high blood pressure, diverticulitis, diverticulosis, GERD, hernia Patient arrives with complaints of pain in his left flank radiating down to his left the abdomen upper and lower, described as crampy and constant symptoms since last night. Patient denies any nausea vomiting urinary symptoms no blood in his urine. Past medical history includes high blood pressure, diverticulitis, diverticulosis, GERD, ventral hernia Past surgical history includes cholecystectomy, hernia repair, cyst removed from the patient's left knee Social history negative tobacco positive occasional alcohol use Timing/Duration: yesterday Activities at Onset: none Quality: cramping Abdominal Pain Onset Location: LUQ, LLQ, flank Pain Radiation: LUQ, LLQ, flank (left flank) Severity of Pain-Max: moderate Severity of Pain-Current: moderate Modifying Factors: Improves With: nothing Associated Symptoms: back (left flank pain), diarrhea, No chest pain, No diaphoresis, No fever/chills, No fatigue, No headache, No heartburn, No loss of appetite, No nausea, No neck pain, No rash, No shortness of breath, No syncope, No testicular pain, No vomiting, No weakness Previous symptoms: same symptoms as today (similar symptoms with diverticulitis) Allergies/Adverse Reactions: No Known Drug Allergies Allergy (Verified 04/26/18 16:24) Home Medications: Omeprazole 20 MG [Prilosec 20 mg] 20 mg PO DAILY 10/31/14 [History] Fiber [Fiber Choice] 1 tab PO DAILY 10/06/15 [History] Lisinopril 20 mg [Zestril 20 MG] 20 mg PO DAILY 06/02/16 [History] Lactobacillus Combo No.10 [Probiotic] 1 each PO DAILY 04/26/18 [History] Hx Tetanus, Diphtheria Vaccination/Date Given: Yes (2016) Hx Influenza Vaccination/Date Given: Yes Hx Pneumococcal Vaccination/Date Given: No - Review of Systems Constitutional: No Fever, No Chills Eyes: No Symptoms Ears, Nose, & Throat: No Symptoms Respiratory: No Cough, No Dyspnea Cardiac: No Chest Pain, No Edema, No Syncope Abdominal/Gastrointestinal: Abdominal Pain (Left-sided abdominal pain), Diarrhea , No Nausea, No Vomiting, No Constipation, No Hematemesis, No Hematochezia, No Melena, No Dysphagia, No Appetite Changes Genitourinary Symptoms: Flank Pain (Left flank pain), No Dysuria, No Frequency, No Hematuria, No Hesitancy, No Incontinence, No Urgency, No Urinary Retention, No Testicle Pain, No Penile Discharge Musculoskeletal: No Back Pain, No Neck Pain Skin: No Rash Neurological: No Dizziness, No Focal Weakness, No Sensory Changes Psychological: No Symptoms Endocrine: No Symptoms All Other Systems: Reviewed and Negative - Past Medical History Pertinent Past Medical History: Yes Neurological History: No Pertinent History ENT History: No Pertinent History Cardiac History: Hypertension Respiratory History: No Pertinent History Endocrine Medical History: No Pertinent History Musculoskeletal History: No Pertinent History GI Medical History: Diverticulitis, Diverticulosis, GERD, Hernia History: No Pertinent History Psycho-Social History: No Pertinent History Male Reproductive Disorders: No Pertinent History - Past Surgical History Past Surgical History: Yes Neuro Surgical History: No Pertinent History Cardiac: No Pertinent History Respiratory: No Pertinent History Gastrointestinal: Cholecystectomy, Hernia Repair Genitourinary: No Pertinent History Musculoskeletal: Other Male Surgical History: No Pertinent History Other Surgical History: cyst removed left knee - Social History Smoking Status: Light tobacco smoker Exposure to second hand smoke: Yes Drug Use: none Patient Lives Alone: No - Nursing Vital Signs Nursing Vital Signs: Initial Vital Signs Temperature 98.6 F 04/26/18 16:12 Pulse Rate 111 H 04/26/18 16:12 Blood Pressure 144/90 04/26/18 16:12 O2 Sat by Pulse Oximetry 96 04/26/18 16:12 Pain Scale Pain Intensity 8 - Physical Exam General Appearance: moderate distress, alert, obese, other (well-developed white male , moderate distress alert oriented 3) Eye Exam: PERRL/EOMI, eyes nml inspection Ears, Nose, Throat Exam: normal ENT inspection, pharynx normal, moist mucous membranes Neck Exam: normal inspection, non-tender, supple, full range of motion Respiratory Exam: normal breath sounds, lungs clear, No respiratory distress Cardiovascular Exam: regular rate/rhythm, normal heart sounds Gastrointestinal/Abdomen Exam: soft, tenderness (Left lower quadrant tenderness) , No distention, No mass, No guarding, No ecchymosis, No pulsatile mass, No rebound, No hernia, No hepatomegaly, No organomegaly, No splenomegaly Back Exam: CVA tenderness (Left flank tenderness), No normal range of motion, No vertebral tenderness, No rash, No decreased range of motion, No muscle spasm , No point tenderness Extremity Exam: normal inspection Neurologic Exam: alert, oriented x 3, cooperative, travograph operator II-XII nml as tested, normal mood/affect, nml cerebellar function, sensation nml, No motor deficits Skin Exam: normal color, warm, dry SpO2 Interpretation: normal (96%) SpO2: 96 Oxygen Delivery: Room Air - Course Nursing assessment & vital signs reviewed: Yes - CT Exams Abdomen/Pelvis CT Interpretation: Discussed w/radiologist (CT abdomen and pelvis: Impression: 1. Again scattered diverticulosis. New finding of mild diverticulitis involving the distal descending colon with small free fluid. No perforation or abscess. 2. Stable L5 spondylolysis without spondylolisthesi and left lung base calcified granuloma. Remaining CT abdomen/pelvis without contrast exam is negative.) Ordered Tests: Active Orders 24 hr Category Date Time Status IV Insertion STAT Care 04/26/18 16:27 Active ABDOMEN AND PELVIS W/0 CONTRAS [CT] Stat Exams 04/26/18 16:32 Completed AMYLASE Stat Lab 04/26/18 16:54 Completed CBC W DIFF Stat Lab 04/26/18 16:54 Completed CMP Stat Lab 04/26/18 16:54 Completed LIPASE Stat Lab 04/26/18 16:54 Completed Lactic Acid Stat Lab 04/26/18 16:55 Completed UA W/RFX UR CULTURE Stat Lab 04/26/18 16:46 Completed Medication Summary Discontinued Medications Generic Name Dose Route Start Last Admin Trade Name Freq PRN Reason Stop Dose Admin Hydromorphone HCl 1 mg 04/26/18 17:11 04/26/18 17:17 Hydromorphone 1 Mg/Ml Ampule IV 04/26/18 17:12 1 mg STAT ONE Administration Hydromorphone HCl Confirm 04/26/18 17:15 Hydromorphone 1 Mg/Ml Ampule Administered 04/26/18 17:16 Dose 1 mg .ROUTE .STK-MED ONE Sodium Chloride 1,000 mls @ 999 mls/hr 04/26/18 16:27 04/26/18 17:57 Sodium Chloride 0.9% 1000 Ml IV 04/26/18 17:27 Infused .Q1H1M STA Infusion Sodium Chloride Confirm 04/26/18 16:43 Sodium Chloride 0.9% 1000 Ml Administered 04/26/18 16:44 Dose 1,000 mls @ ud .ROUTE .STK-MED ONE Ampicillin Sodium/Sulbactam Sodium 3 gm in 100 mls @ 200 mls/hr 04/26/18 17: 12 04/26/18 17:58 Unasyn 3gm / Nacl 100ml IV 04/26/18 17:41 Infused STAT STA Infusion Ampicillin Sodium/Sulbactam Sodium Confirm 04/26/18 17:16 Unasyn 3gm / Nacl 100ml Administered 04/26/18 17:17 Dose 3 gm in 100 mls @ ud .ROUTE .STK-MED ONE Ketorolac Tromethamine 30 mg 04/26/18 16:27 04/26/18 16:45 Toradol 30 Mg Injection IV 04/26/18 16:28 30 mg STAT ONE Administration Ketorolac Tromethamine Confirm 04/26/18 16:43 Toradol 30 Mg Injection Administered 04/26/18 16:44 Dose 30 mg .ROUTE .STK-MED ONE Lab/Rad Data: Laboratory Result Diagrams 04/26/18 16:54 04/26/18 16:54 Laboratory Results 04/26/18 04/26/18 04/26/18 Range/Units 16:55 16:54 16:54 WBC 9.8 (4.0-10.5) K/mm3 RBC 5.13 (4.1-5.6) M/mm3 Hgb 14.6 (12.5-18.0) gm/dl Hct 42.6 (42-50) % MCV 83.0 (78-100) fl MCH 28.5 (26-32) pg MCHC 34.3 (32-36) g/dl RDW 13.5 (11.5-14.0) % Plt Count 305 (150-450) K/mm3 MPV 10.7 H (6-9.5) fl Gran % 75.0 H (36.0-66.0) % Eos # (Auto) 0.09 (0-0.5) Absolute Lymphs (auto) 1.45 (1.0-4.6) Absolute Monos (auto) 0.90 (0.0-1.3) Lymphocytes % 14.8 L (24.0-44.0) % Monocytes % 9.2 (0.0-12.0) % Eosinophils % 0.9 (0.00-5.0) % Basophils % 0.1 (0.0-0.4) % Absolute Granulocytes 7.37 H (1.4-6.9) Basophils # 0.01 (0-0.4) Sodium 135 L (137-145) mmol/L Potassium 3.8 (3.5-5.1) mmol/L Chloride 96 L (98-107) mmol/L Carbon Dioxide 29 (22-30) mmol/L Anion Gap 14.0 (5-15) MEQ/L BUN 13 (9-20) mg/dL Creatinine 0.74 (0.66-1.25) mg/dL Estimated GFR > 60.0 ML/MIN Glucose 115 H (74-106) mg/dL Lactic Acid 1.3 (0.4-2.0) Calcium 9.8 (8.4-10.2) mg/dL Total Bilirubin 0.90 (0.2-1.3) mg/dL AST 16 L (17-59) U/L ALT 23 (0-50) U/L Alkaline Phosphatase 108 (38-126) U/L Serum Total Protein 8.6 H (6.3-8.2) g/dL Albumin 4.7 (3.5-5.0) g/dL Amylase 59 (30-110) U/L Lipase 17 L (23-300) U/L Urine Color (YELLOW) Urine Appearance (CLEAR) Urine pH (5-6) Ur Specific [place] (1.005-1.025) Urine Protein (Negative) Urine Ketones (NEGATIVE) Urine Blood (0-5) Be/ul Urine Nitrite (NEGATIVE) Urine Bilirubin (NEGATIVE) Urine Urobilinogen (0-1) mg/dL Ur Leukocyte Esterase (NEGATIVE) Urine WBC (Auto) (0-5) /HPF Urine RBC (Auto) (0-2) /HPF U Epithel Cells (Auto) (FEW) /HPF Urine Bacteria (Auto) (NEGATIVE) /HPF Urine Culture Reflexed (NO) Urine Glucose (NEGATIVE) mg/dL 04/26/18 Range/Units 16:46 WBC (4.0-10.5) K/mm3 RBC (4.1-5.6) M/mm3 Hgb (12.5-18.0) gm/dl Hct (42-50) % MCV (78-100) fl MCH (26-32) pg MCHC (32-36) g/dl RDW (11.5-14.0) % Plt Count (150-450) K/mm3 MPV (6-9.5) fl Gran % (36.0-66.0) % Eos # (Auto) (0-0.5) Absolute Lymphs (auto) (1.0-4.6) Absolute Monos (auto) (0.0-1.3) Lymphocytes % (24.0-44.0) % Monocytes % (0.0-12.0) % Eosinophils % (0.00-5.0) % Basophils % (0.0-0.4) % Absolute Granulocytes (1.4-6.9) Basophils # (0-0.4) Sodium (137-145) mmol/L Potassium (3.5-5.1) mmol/L Chloride (98-107) mmol/L Carbon Dioxide (22-30) mmol/L Anion Gap (5-15) MEQ/L BUN (9-20) mg/dL Creatinine (0.66-1.25) mg/dL Estimated GFR ML/MIN Glucose (74-106) mg/dL Lactic Acid (0.4-2.0) Calcium (8.4-10.2) mg/dL Total Bilirubin (0.2-1.3) mg/dL AST (17-59) U/L ALT (0-50) U/L Alkaline Phosphatase (38-126) U/L Serum Total Protein (6.3-8.2) g/dL Albumin (3.5-5.0) g/dL Amylase (30-110) U/L Lipase (23-300) U/L Urine Color STRAW (YELLOW) Urine Appearance CLEAR (CLEAR) Urine pH 6.0 (5-6) Ur Specific [place] 1.006 (1.005-1.025) Urine Protein NEGATIVE (Negative) Urine Ketones NEGATIVE (NEGATIVE) Urine Blood NEGATIVE (0-5) Be/ul Urine Nitrite NEGATIVE (NEGATIVE) Urine Bilirubin NEGATIVE (NEGATIVE) Urine Urobilinogen NEGATIVE (0-1) mg/dL Ur Leukocyte Esterase NEGATIVE (NEGATIVE) Urine WBC (Auto) NONE (0-5) /HPF Urine RBC (Auto) NONE (0-2) /HPF U Epithel Cells (Auto) NONE (FEW) /HPF Urine Bacteria (Auto) NONE (NEGATIVE) /HPF Urine Culture Reflexed NO (NO) Urine Glucose NEGATIVE (NEGATIVE) mg/dL - Progress Progress: improved Progress Note: 04/26/18 18:11 This is a 42-year-old white male with history of high blood pressure, diverticulitis, diverticulosis, GERD, hernia he arrives with complaint of abdominal pain left flank radiating left side symptoms since yesterday he has had no vomiting he does have some diarrhea he has had no fevers. Patient with a CT of the abdomen which is remarkable for scattered colonic diverticulosis and a new finding of mild diverticulitis involving the distal descending colon with small free fluid. No perforation or abscess patient's white count is normal at 9.8 hemoglobin 14.6 hematocrit 42.6 platelets are 305 patient's urinalysis is unremarkable patient's chemistry is remarkable for a sodium of 135 potassium 3.8 chloride 96 bicarbonate 29 BUN 13 creatinine 0.74 glucose is 1:15 Patient is given hydromorphone 1 mg IV, Zofran 4 mg IV and normal saline 1 L IV. Patient states he is feeling better and is essentially pain-free at this time he did express a little concerned about going home because he was worried his pain might return. The patient appeared to be stable I discussed case with Dr. Cyr it was felt that the patient could be safely discharged on Augmentin 500 mg 3 times a day for 10 days and [place] as needed for pain. Will discharge patient diagnosis diverticulitis, left-sided abdominal pain. Will send him home with [place], Augmentin, place patient on clear fluids patient is to follow-up with Dr. London he is to call in the morning to arrange follow- up. He is of course to return for acute distress or for severe symptoms. - Departure Time of Disposition: 18:15 Departure Disposition: Home Clinical Impression: Diverticulitis, Left sided abdominal pain Condition: Fair Critical Care Time: No Referrals: WALI LONDON [Primary Care Provider] - Additional Instructions: Return home. Plenty of fluids. Clear fluids only 24-48 hours. [place] as prescribed. Augmentin as prescribed. Contact Dr. London tomorrow and arrange follow-up. Return for acute distress or for severe symptoms. Prescriptions: Amox Tr/Potass Clav. 500 mg [Augmentin 500-125 Tablet] 500 mg PO TID #30 tablet Hydrocodone/Acetaminophen [[place] 5-325 Tablet] 1 tab PO Q4-6HPRN PRN #15 tablet MDD 6 tablets PRN Reason: Pain
[2018-04-26] MEDS ORDERED: Sodium Chloride 0.9% 1000 ML 1,000 ML ONE (16:43)
[2018-04-26] MEDS ORDERED: TORAdol 30 mg Injection ONE (16:43)
[2018-04-26 16:47] LABS: BASOPHIL % 0.1 % (0.0-0.4); Basophil (Absolute #) 0.01 (0-0.4); Eosinophil % 0.9 % (0.00-5.0); Eosinophil (Absolute #) 0.09 (0-0.5); Granulocyte Absolute (ANC) 7.37 (1.4-6.9); Hematocrit 42.6 % (42-50); Hemoglobin 14.6 gm/dl (12.5-18.0); Lymphocyte (Absolute #) 1.45 (1.0-4.6); Lymphocytes % 14.8 % (24.0-44.0); Mean Corpuscular Hemoglobin 28.5 pg (26-32); Mean Corpuscular Hgb Concent. 34.3 g/dl (32-36); Mean Platelet Volume 10.7 fl (6-9.5); Monocytes % 9.2 % (0.0-12.0); Platelet Count 305 K/mm3 (150-450); Red Blood Count 5.13 M/mm3 (4.1-5.6); Red Cell Distribution Width 13.5 % (11.5-14.0); White Blood Count 9.8 K/mm3 (4.0-10.5)
--- NOTE | 2018-04-26 17:02 | XRAY ---
Indication: Left abdomen pain. Multiple contiguous axial images obtained through the abdomen and pelvis without contrast as ordered. Comparison: May 01, 2017. Lung bases demonstrate stable lingular calcified granuloma. No infiltrate or effusion. Heart is not enlarged. Noncontrasted stomach and bowel loops appear nonobstructed. Normal appendix. Again mild scattered colonic diverticulosis. Distal descending colon demonstrates new short segment of mild diverticulitis. Tiny free fluid but no walled off fluid collection or free air. Again previous cholecystectomy. Remaining liver, pancreas, spleen, adrenal glands, kidneys, ureters, bladder, and aorta appear unremarkable for noncontrast exam. Osseous structures intact with stable left L4 spondylolysis without spondylolisthesis. No ventral or inguinal hernias. Impression: 1. Again scattered colonic diverticulosis. New finding mild diverticulitis involving the distal descending colon with small free fluid. No perforation or abscess. 2. Stable L5 spondylolysis without spondylolisthesis and left lung base calcified granuloma. 3. Remaining CT abdomen/pelvis without contrast exam is negative. CT DI 34.69
[2018-04-26] MEDS ORDERED: Hydromorphone 1 mg/ml Ampule IV ONE (17:11)
[2018-04-26] MEDS ORDERED: Unasyn 3GM / NaCl 100ML 3 GM/100 ML IVPB IV STA (17:12)
[2018-04-26] MEDS ORDERED: Hydromorphone 1 mg/ml Ampule ONE (17:15)
[2018-04-26] MEDS ORDERED: Unasyn 3GM / NaCl 100ML 3 GM/100 ML IVPB ONE (17:16)
[2018-04-26 17:26] LABS: ALBUMIN 4.7 g/dL (3.5-5.0); ALKALINE PHOSPHATASE 108 U/L (38-126); AMYLASE 59 U/L (30-110); BLOOD UREA NITROGEN 13 mg/dL (9-20); CHLORIDE 96 mmol/L (98-107); Calcium 9.8 mg/dL (8.4-10.2); Carbon Dioxide 29 mmol/L (22-30); Creatinine 1 0.74 mg/dL (0.66-1.25); Glucose 115 mg/dL (74-106); LIPASE 17 U/L (23-300); Potassium 3.8 mmol/L (3.5-5.1); SGOT/AST 16 U/L (17-59); SGPT/ALT 23 U/L (0-50); SODIUM 135 mmol/L (137-145); Total Protein 8.6 g/dL (6.3-8.2)
[2018-04-26 17:27] LABS: Appearance CLEAR (CLEAR); Bilirubin NEGATIVE (NEGATIVE); Blood NEGATIVE Ery/ul (0-5); Glucose NEGATIVE (NEGATIVE); Ketones NEGATIVE (NEGATIVE); Leukocyte Esterase NEGATIVE (NEGATIVE); Nitrite NEGATIVE (NEGATIVE); Protein,Urine Dip NEGATIVE (Negative); Specific Gravity 1.006 (1.005-1.025); Urobilinogen NEGATIVE mg/dL (0-1)
[2018-04-26 18:20] VITALS: BP 134/84; PULSE 88; O2SAT 99
== END 2018-04-26 18:29 | disposition home or self-care (01) ==
LOC: ED 16:10
DX: K57.32 Diverticulitis of large intestine without perforation or abscess without bleeding (principal); R19.7 Diarrhea, unspecified; Z79.899 Other long term (current) drug therapy; F17.200 Nicotine dependence, unspecified, uncomplicated
CPT/HCPCS: 36415; 74176; 80053; 81001; 82150; 83605; 83690; 85025; 96360; 96374; 96375; 99284; J0295; J1170; J1885

== ENCOUNTER 2022-01-25 20:02 | Emergency (ER) | payer BC, SELFPAY ==
[2022-01-25 20:11] VITALS: O2SAT 97
--- NOTE | 2022-01-25 20:33 | ERPHSYRPT ---
- History of Present Illness Time Seen by Provider: 01/25/22 20:20 Source: patient Exam Limitations: no limitations Patient Subjective Stated Complaint: I've had a few dizzy spells today and pain across my forehead and into the back of my neck like pressure. Triage Nursing Assessment: pt ambulated into ER without diff, spouse at bedside. Pt alert and oriented x4. Pt c/o headache across his k[place], episcopal and to the back of his neck. Pt had a few episodes of dizziness today with tingling down the left side of jaw into lips. No facial droop noted, pt c/o some nausea but no vomiting. Pt denies any loc. Pt c/o left shoulder being tight. No weakness noted. Physician History: This is a obese 46-year-old white male patient of Dr. London who has noticed intermittent dizziness for over a month. Episodes are becoming more frequent and the worst symptoms of dizziness were this morning. He has had intermittent dizziness today. He denies chest pain. He denies shortness of air. Patient has a history of hyperlipidemia and gastroesophageal reflux disease as well as hypertension. Timing/Duration: intermittent, worse, other (More frequent episodes) Severity: mild (To moderate) Modifying Factors: Improves With: nothing Associated Symptoms: headaches (Described as a pressure), No chest pain, No fever Allergies/Adverse Reactions: No Known Drug Allergies Allergy (Verified 01/25/22 20:22) Home Medications: Omeprazole 20 MG [Prilosec 20 mg] 20 mg PO DAILY 10/31/14 [History] Fiber [Fiber Choice] 1 tab PO DAILY 10/06/15 [History] Lisinopril 20 mg [Zestril 20 MG] 20 mg PO DAILY 06/02/16 [History] Lactobacillus Combo No.10 [Probiotic] 1 each PO DAILY 04/26/18 [History] Atorvastatin Calcium 20 mg PO DAILY 01/25/22 [History] Phentermine HCl 1 tab PO DAILY 01/25/22 [History] Tirzepatide [Mounjaro] 5 mg SQ WEEKLY 01/25/22 [History] Hx Tetanus, Diphtheria Vaccination/Date Given: Yes Hx Influenza Vaccination/Date Given: No Hx Pneumococcal Vaccination/Date Given: No Immunizations Up to Date: Yes Travel Risk - International Travel Have you traveled outside of the country in past 3 weeks: No - Coronavirus Screening Are you exhibiting any of the following symptoms?: Yes Symptoms: Headaches/Body Aches/Fatigue Close contact with a COVID-19 positive Pt in past 14-21 Days: No - Vaccine Status Have you recieved a Covid-19 vaccination: No - Review of Systems Constitutional: No Symptoms Eyes: No Symptoms Ears, Nose, & Throat: No Symptoms Respiratory: No Symptoms Cardiac: No Symptoms Abdominal/Gastrointestinal: No Symptoms Genitourinary Symptoms: No Symptoms Musculoskeletal: No Symptoms Skin: No Symptoms Neurological: Dizziness, Headache Psychological: No Symptoms, Hallucinations Hematologic/Lymphatic: No Symptoms Immunological/Allergic: No Symptoms All Other Systems: Reviewed and Negative - Past Medical History Pertinent Past Medical History: Yes Neurological History: No Pertinent History ENT History: No Pertinent History Cardiac History: High Cholesterol, Hypertension Respiratory History: No Pertinent History Endocrine Medical History: No Pertinent History Musculoskeletal History: No Pertinent History GI Medical History: Diverticulitis, Diverticulosis, GERD, Gallbladder Disease, Hernia History: No Pertinent History Psycho-Social History: No Pertinent History Male Reproductive Disorders: No Pertinent History Other Medical History: concussion as a child - Past Surgical History Past Surgical History: Yes Neuro Surgical History: No Pertinent History Cardiac: No Pertinent History Respiratory: No Pertinent History Gastrointestinal: Cholecystectomy, Hernia Repair Genitourinary: No Pertinent History Musculoskeletal: Other Male Surgical History: No Pertinent History Other Surgical History: cyst removed left knee - Social History Smoking Status: Current every day smoker How long have you smoked: 18 yrs Exposure to second hand smoke: Yes Drug Use: none Patient Lives Alone: No - Nursing Vital Signs Nursing Vital Signs: Initial Vital Signs Temperature 97.7 F 01/25/22 20:09 Pulse Rate 89 01/25/22 20:09 Respiratory Rate 17 01/25/22 20:09 Blood Pressure 141/83 01/25/22 20:09 O2 Sat by Pulse Oximetry 97 01/25/22 20:09 Pain Scale Pain Intensity 2 - Physical Exam General Appearance: no apparent distress, alert, anxiety, obese Eye Exam: PERRL/EOMI, eyes nml inspection Ears, Nose, Throat Exam: normal ENT inspection, moist mucous membranes Neck Exam: normal inspection, non-tender, supple, full range of motion Respiratory Exam: normal breath sounds, lungs clear, airway intact, No chest tenderness, No respiratory distress Cardiovascular Exam: regular rate/rhythm, normal heart sounds, normal peripheral pulses Gastrointestinal/Abdomen Exam: soft, normal bowel sounds, No tenderness Rectal Exam: not done Back Exam: normal inspection, normal range of motion, No CVA tenderness, No vertebral tenderness Extremity Exam: normal inspection, normal range of motion, pelvis stable Neurologic Exam: alert, oriented x 3, cooperative, rewind operator II-XII nml as tested, normal mood/affect, nml cerebellar function, nml station & gait, sensation nml Skin Exam: normal color, warm, dry Lymphatic Exam: No adenopathy SpO2 Interpretation: normal SpO2: 97 O2 Delivery: Room Air - Course Nursing assessment & vital signs reviewed: Yes Ordered Tests: Active Orders 24 hr Category Date Time Status Clean Catch Urine Specimen STAT Care 01/25/22 21:00 Active HEAD WITHOUT CONTRAST [CT] Stat Exams 01/25/22 20:33 Taken UA W/RFX CULTURE Stat Lab 01/25/22 21:20 Completed Urine Triage Profile Stat Lab 01/25/22 21:20 Completed Lab/Rad Data: Laboratory Results 01/25/22 01/25/22 01/25/22 Range/Units Unknown 21:20 21:20 Urinalys Dipstick Clnc MAIN LAB Urine Color YELLOW (YELLOW) Urine Appearance CLEAR (CLEAR) Urine pH 6.0 (5-6) Ur Specific [place] <=1.005 (1.005-1.025) POC Urine Protein Conf NEGATIVE (Negative) Urine Ketones NEGATIVE (NEGATIVE) Urine Nitrite NEGATIVE (NEGATIVE) Urine Bilirubin NEGATIVE (NEGATIVE) Urine Urobilinogen 0.2 (0-1) mg/dL Urine Leukocytes NEGATIVE (NEGATIVE) Urine WBC (Auto) NONE (0-5) /HPF Urine RBC (Auto) NONE (0-2) /HPF U Epithel Cells (Auto) RARE (FEW) /HPF Urine Bacteria (Auto) Not Reportable Urine RBC NEGATIVE (0-5) Be/ul Ur Culture Indicated? NO Urine Glucose NEGATIVE (NEGATIVE) mg/dL Urine Opiates Level NEGATIVE (NEGATIVE) Ur Methadone NEGATIVE (NEGATIVE) Urine Barbiturates NEGATIVE (NEGATIVE) Ur Phencyclidine (PCP) NEGATIVE (NEGATIVE) Urine Amphetamine NEGATIVE (NEGATIVE) U Benzodiazepine Level NEGATIVE (NEGATIVE) Urine Cocaine NEGATIVE (NEGATIVE) Urine Marijuana (THC) NEGATIVE (NEGATIVE) Influenza Type A Ag NEGATIVE (NEGATIVE) Influenza Type B Ag NEGATIVE (NEGATIVE) RSV (PCR) NEGATIVE (Negative) SARS-CoV-2 (PCR) NEGATIVE (NEGATIVE) - Progress Progress: unchanged Progress Note: 01/25/22 21:59 CAT scan of the head without contrast shows left maxillary sinus infection. In addition there is right maxillary sinus and right ethmoid sinus infections present as well. Counseled pt/family regarding: diagnosis, need for follow-up, rad results - Departure Departure Disposition: Home Clinical Impression: Sinusitis Condition: Stable Critical Care Time: No Referrals: WALI LONDON [Primary Care Provider] - Follow up/PCP as directed Additional Instructions: Take your antibiotics as prescribed. Follow-up with your primary care provider for further evaluation and management. Prescriptions: Prednisone 10 mg [Deltasone 10 mg] 10 mg PO TID #12 tablet Azithromycin 250 mg [Zithromax 250 MG TABLET] 250 mg PO ZPACK #4 tablet
[2022-01-25 21:15] LABS: Epithelial Cells RARE /HPF (FEW)
[2022-01-25 21:21] LABS: INFLUENZA A NEGATIVE (NEGATIVE); INFLUENZA B NEGATIVE (NEGATIVE); RESPIRATORY SYNCTIAL VIRUS NEGATIVE (Negative); SARS-CoV-2 Xpert Express NEGATIVE (NEGATIVE)
[2022-01-25 21:27] LABS: Amphetamine,Urine NEGATIVE (NEGATIVE); Barbiturate,Urine NEGATIVE (NEGATIVE); Benzodiazepine,Urine NEGATIVE (NEGATIVE); Cocaine,Urine NEGATIVE (NEGATIVE); Methadone,Urine NEGATIVE (NEGATIVE); Opiate,Urine NEGATIVE (NEGATIVE); PCP,Urine NEGATIVE (NEGATIVE); THC,Urine NEGATIVE (NEGATIVE)
[2022-01-25 21:43] LABS: Appearance CLEAR (CLEAR); Bilirubin NEGATIVE (NEGATIVE); Glucose NEGATIVE (NEGATIVE); Ketones NEGATIVE (NEGATIVE); RBC NEGATIVE Ery/ul (0-5); Specific Gravity <=1.005 (1.005-1.025)
[2022-01-25 21:44] LABS: Dipstick done @ ? MAIN LAB; Nitrite NEGATIVE (NEGATIVE); Protein,Urine Dip NEGATIVE (Negative); Urine Cultured Indicated? NO; Urobilinogen 0.2 mg/dL (0-1)
[2022-01-25] MEDS ORDERED: DELTASONE 20 MG PO ONE (22:01)
[2022-01-25] MEDS ORDERED: Zithromax 250 MG TABLET PO ONE (22:01)
[2022-01-25] MEDS ORDERED: DELTASONE 20 MG ONE (22:05)
[2022-01-25] MEDS ORDERED: Zithromax 250 MG TABLET ONE (22:05)
[2022-01-25 22:11] VITALS: BP 125/75; PULSE 78
--- NOTE | 2022-01-26 23:01 | XRAY ---
Exam: CT of the head without IV contrast from 01/25/2022. CTDI: 53.92 mGy Comparison: CT of the head without IV contrast from 03/21/2014. Indication: Dizziness; tooth extraction 3 weeks ago per patient. Technique: Non-IV contrast axial images were obtained through the brain. Reconstructed coronal and sagittal images were created and reviewed. Findings: The ventricles appear of normal size and configuration. No focal mass effect or midline shift is seen. No acute intracranial bleed or abnormal extra-axial fluid collection is seen. The griffiths matter-white matter interfaces are well preserved. No focal low attenuation lesion is seen to suggest an ischemic infarct or focal edema. The cortical sulci and basilar cisterns appear unremarkable. The calvarium of the skull appears intact. I note almost complete opacification of the left maxillary sinus representing an unfavorable change. There is also moderate mucosal thickening within the inferior right maxillary sinus and mild right ethmoid sinus mucosal thickening. The sphenoid sinus and frontal sinuses appear clear. No air-fluid levels are seen. The mastoids are clear without effusion. The internal auditory canals appear symmetric. The middle ear cavities appear unremarkable. The orbits appear grossly unremarkable. Impression: 1. The CT of the brain appears unremarkable representing no change from 03/21/2014. 2. However, there is evidence of moderate chronic sinus disease/sinusitis as compared to the prior CT study from 03/21/2014, as detailed above. No air-fluid levels are seen.
== END 2022-01-25 22:17 | disposition home or self-care (01) ==
LOC: ED 20:02
DX: J32.8 Other chronic sinusitis (principal); R42 Dizziness and giddiness; R51.9 Headache, unspecified; E78.5 Hyperlipidemia, unspecified; I10 Essential (primary) hypertension; Z72.0 Tobacco use; Z79.899 Other long term (current) drug therapy; Z79.52 Long term (current) use of systemic steroids; Z28.310 Unvaccinated for COVID-19
CPT/HCPCS: 0241U; 70450; 80307; 81015; 99283; A9270-GY

== ENCOUNTER 2022-02-21 22:24 | Emergency (ER) | payer BC, SELFPAY ==
[2022-02-22] MEDS ORDERED: Zofran 4 MG/2 ML VIAL IV ONE (00:07)
[2022-02-22] MEDS ORDERED: Sodium Chloride 0.9% 1000 ML 1,000 ML IV STA (00:07)
[2022-02-22] MEDS ORDERED: FLAGYL 500 MG IVPB 500 MG/100 ML BAG IV STA (00:11)
[2022-02-22] MEDS ORDERED: LEVOFLOXACIN 750MG/150ML D5W 750 MG/150 ML BAG IV STA (00:12)
[2022-02-22] MEDS ORDERED: Hydromorphone 1 mg/ml Injection IV ONE (00:13)
--- NOTE | 2022-02-22 00:21 | ERPHSYRPT ---
- History of Present Illness Time Seen by Provider: 02/22/22 00:18 Historian: patient, family Exam Limitations: no limitations Patient Subjective Stated Complaint: pt has bee having pain in abdomen on left side, states he has a history of diverticulitis and it feels as though he is having the same symptoms as he has before. has had diarrhea, and vomiting and belching Triage Nursing Assessment: pt alert and oriented, moaninig in pain and holding abdomen, states he has pain 8/10 in abdomen Physician History: pt has hx diverticulitis and has had LLQ pain same as prior episodes for the last 2 days, with emesis x1. LLQtenderness on exam. Timing/Duration: yesterday Activities at Onset: none Quality: cramping, sharpness Abdominal Pain Onset Location: LLQ Pain Radiation: LLQ Severity of Pain-Max: moderate Modifying Factors: Improves With: nothing Associated Symptoms: nausea, vomiting Previous symptoms: same symptoms as today Allergies/Adverse Reactions: No Known Drug Allergies Allergy (Verified 01/25/22 20:22) Home Medications: Omeprazole 20 MG [Prilosec 20 mg] 20 mg PO DAILY 10/31/14 [History] Fiber [Fiber Choice] 1 tab PO DAILY 10/06/15 [History] Lisinopril 20 mg [Zestril 20 MG] 20 mg PO DAILY 06/02/16 [History] Lactobacillus Combo No.10 [Probiotic] 1 each PO DAILY 04/26/18 [History] Atorvastatin Calcium 20 mg PO DAILY 01/25/22 [History] Phentermine HCl 1 tab PO DAILY 01/25/22 [History] Tirzepatide [Mounjaro] 5 mg SQ WEEKLY 01/25/22 [History] Hx Tetanus, Diphtheria Vaccination/Date Given: Yes Hx Influenza Vaccination/Date Given: No Hx Pneumococcal Vaccination/Date Given: No Travel Risk - International Travel Have you traveled outside of the country in past 3 weeks: No - Coronavirus Screening Are you exhibiting any of the following symptoms?: No Close contact with a COVID-19 positive Pt in past 14-21 Days: No - Vaccine Status Have you recieved a Covid-19 vaccination: No - Review of Systems Constitutional: No Fever, No Chills Eyes: No Symptoms Ears, Nose, & Throat: No Symptoms Respiratory: No Cough, No Dyspnea Cardiac: No Chest Pain, No Edema, No Syncope Abdominal/Gastrointestinal: Abdominal Pain, Nausea, Vomiting, No Diarrhea Genitourinary Symptoms: No Dysuria Musculoskeletal: No Back Pain, No Neck Pain Skin: No Rash Neurological: No Dizziness, No Focal Weakness, No Sensory Changes Psychological: No Symptoms Endocrine: No Symptoms Hematologic/Lymphatic: No Symptoms Immunological/Allergic: No Symptoms All Other Systems: Reviewed and Negative - Past Medical History Pertinent Past Medical History: Yes Neurological History: No Pertinent History ENT History: No Pertinent History Cardiac History: High Cholesterol, Hypertension Respiratory History: No Pertinent History Endocrine Medical History: No Pertinent History Musculoskeletal History: No Pertinent History GI Medical History: Diverticulitis, Diverticulosis, GERD, Gallbladder Disease, Hernia History: No Pertinent History Psycho-Social History: No Pertinent History Male Reproductive Disorders: No Pertinent History Other Medical History: concussion as a child - Past Surgical History Past Surgical History: Yes Neuro Surgical History: No Pertinent History Cardiac: No Pertinent History Respiratory: No Pertinent History Gastrointestinal: Cholecystectomy, Hernia Repair Genitourinary: No Pertinent History Musculoskeletal: Other Male Surgical History: No Pertinent History Other Surgical History: cyst removed left knee - Social History Smoking Status: Current every day smoker How long have you smoked: 18 yrs Exposure to second hand smoke: Yes Drug Use: none Patient Lives Alone: No - Nursing Vital Signs Nursing Vital Signs: Initial Vital Signs Temperature 97 F 02/21/22 22:49 Pulse Rate 72 02/21/22 22:49 Respiratory Rate 18 02/21/22 22:49 Blood Pressure 145/71 02/21/22 22:49 O2 Sat by Pulse Oximetry 96 02/21/22 22:49 Pain Scale Pain Intensity 8 - Physical Exam General Appearance: no apparent distress, alert Eye Exam: PERRL/EOMI, eyes nml inspection Ears, Nose, Throat Exam: normal ENT inspection, pharynx normal, moist mucous membranes Neck Exam: normal inspection, non-tender, supple, full range of motion Respiratory Exam: normal breath sounds, lungs clear, No respiratory distress Cardiovascular Exam: regular rate/rhythm, normal heart sounds Gastrointestinal/Abdomen Exam: soft, tenderness (LLQ), No mass Back Exam: normal inspection, normal range of motion, No CVA tenderness, No vertebral tenderness Extremity Exam: normal inspection, normal range of motion, pelvis stable Neurologic Exam: alert, oriented x 3, cooperative, normal mood/affect, nml cerebellar function, sensation nml, No motor deficits Skin Exam: normal color, warm, dry SpO2 Interpretation: normal SpO2: 96 O2 Delivery: Room Air - Course Nursing assessment & vital signs reviewed: Yes - CT Exams Abdomen/Pelvis CT Interpretation: Tele-radiologist Report, No appendicitis, Other (diverticulosis/ileus) Ordered Tests: Active Orders 24 hr Category Date Time Status EKG-ER Only STAT Care 02/22/22 00:07 Active IV Insertion STAT Care 02/22/22 00:07 Active ABDOMEN AND PELVIS W/0 CONTRAS [CT] Stat Exams 02/22/22 00:08 Taken AMYLASE Stat Lab 02/22/22 00:32 Completed CBC W DIFF Stat Lab 02/22/22 00:32 Completed CMP Stat Lab 02/22/22 00:32 Completed LIPASE Stat Lab 02/22/22 00:32 Completed Lactic Acid Stat Lab 02/22/22 00:25 Completed TROPONIN Q4H Lab 02/22/22 00:32 Completed TROPONIN Q4H Lab 02/22/22 04:15 Ordered TROPONIN Q4H Lab 02/22/22 08:15 Ordered UA W/RFX CULTURE Stat Lab 02/22/22 00:58 Completed Medication Summary Discontinued Medications Generic Name Dose Route Start Last Admin Trade Name Freq PRN Reason Stop Dose Admin Famotidine 20 mg 02/22/22 00:46 02/22/22 01:20 Famotidine 20 Mg/1 Vial IV 02/22/22 00:47 20 mg STAT ONE Administration Famotidine Confirm 02/22/22 01:18 Famotidine 20 Mg/1 Vial Administered 02/22/22 01:19 Dose 20 mg IV .STK-MED ONE Hydromorphone HCl 1 mg 02/22/22 00:13 02/22/22 00:36 Hydromorphone 1 Mg/1ml Inj 1 Mg/Ml Syringe IV 02/22/22 00:14 1 mg STAT ONE Administration Hydromorphone HCl Confirm 02/22/22 00:28 Hydromorphone 1 Mg/1ml Inj 1 Mg/Ml Syringe Administered 02/22/22 00:29 Dose 1 mg .ROUTE .STK-MED ONE Sodium Chloride 1,000 mls @ 999 mls/hr 02/22/22 00:07 02/22/22 00:35 Sodium Chloride 0.9% 1000 Ml IV 02/22/22 01:07 999 mls/hr .Q1H1M STA Administration Metronidazole 500 mg in 100 mls @ 200 mls/hr 02/22/22 00:11 02/22/22 00:36 Flagyl 500 Mg Ivpb IV 02/22/22 00:40 200 ml/hr STAT STA 200 mls/hr Administration Levofloxacin/Dextrose 750 mg in 150 mls @ 100 mls/hr 02/22/22 00:12 02/22/22 01:20 Levofloxacin 750mg/150ml D5w IV 02/22/22 01:41 100 ml/hr STAT STA 100 mls/hr Administration Sodium Chloride Confirm 02/22/22 00:28 Sodium Chloride 0.9% 1000 Ml Administered 02/22/22 00:29 Dose 1,000 mls @ ud .ROUTE .STK-MED ONE Metronidazole Confirm 02/22/22 00:28 Flagyl 500 Mg Ivpb Administered 02/22/22 00:29 Dose 500 mg in 100 mls @ ud IV .STK-MED ONE Levofloxacin/Dextrose Confirm 02/22/22 01:18 Levofloxacin 750mg/150ml D5w Administered 02/22/22 01:19 Dose 750 mg in 150 mls @ ud IV .STK-MED ONE Ondansetron HCl 4 mg 02/22/22 00:07 02/22/22 00:37 Ondansetron Hcl 4 Mg/2 Ml Vial IV 02/22/22 00:08 4 mg STAT ONE Administration Ondansetron HCl Confirm 02/22/22 00:28 Ondansetron Hcl 4 Mg/2 Ml Vial Administered 02/22/22 00:29 Dose 4 mg .ROUTE .STK-MED ONE Pantoprazole Sodium 40 mg 02/22/22 00:46 02/22/22 01:20 Pantoprazole 40 Mg Vial IV 02/22/22 00:47 40 mg STAT ONE Administration Pantoprazole Sodium Confirm 02/22/22 01:18 Pantoprazole 40 Mg Vial Administered 02/22/22 01:19 Dose 40 mg IV .STK-MED ONE Lab/Rad Data: Laboratory Result Diagrams 02/22/22 00:32 02/22/22 00:32 Laboratory Results 02/22/22 02/22/22 02/22/22 Range/Units 00:58 00:32 00:32 WBC (4.0-10.5) x10^3/uL RBC (4.1-5.6) x10^6/uL Hgb (12.5-18.0) g/dL Hct (42-50) % MCV (78-100) fL MCH (26-32) pg MCHC (32-36) g/dL RDW (11.5-14.0) % Plt Count (150-450) x10^3/uL MPV (7.5-11.0) fL Gran % (36.0-66.0) % Immature Gran % (Auto) (0.00-0.4) % Nucleat RBC Rel Count (0.00-0.1) % Eos # (Auto) (0-0.5) x10^3/uL Immature Gran # (Auto) (0.00-0.03) x10^3u/L Absolute Lymphs (auto) (1.0-4.6) x10^3/uL Absolute Monos (auto) (0.0-1.3) x10^3/uL Absolute Nucleated RBC (0.00-0.01) x10^3u/L Lymphocytes % (24.0-44.0) % Monocytes % (0.0-12.0) % Eosinophils % (0.00-5.0) % Basophils % (0.0-0.4) % Absolute Granulocytes (1.4-6.9) x10^3/uL Basophils # (0-0.4) x10^3/uL Sodium 137 (137-145) mmol/L Potassium 3.9 (3.5-5.1) mmol/L Chloride 104 (98-107) mmol/L Carbon Dioxide 29 (22-30) mmol/L Anion Gap 8.9 (5-15) MEQ/L BUN 17 (9-20) mg/dL Creatinine 0.86 (0.66-1.25) mg/dL Estimated GFR > 60.0 ML/MIN Glucose 99 (74-106) mg/dL Lactic Acid (0.4-2.0) Calcium 9.1 (8.4-10.2) mg/dL Total Bilirubin 0.20 (0.2-1.3) mg/dL AST 22 (17-59) U/L ALT 28 (0-50) U/L Alkaline Phosphatase 84 (38-126) U/L Troponin I < 0.012 (0.000-0.034) ng/mL Serum Total Protein 7.4 (6.3-8.2) g/dL Albumin 4.2 (3.5-5.0) g/dL Amylase 60 (30-110) U/L Lipase 40 (23-300) U/L Urinalys Dipstick Clnc MAIN LAB Urine Color YELLOW (YELLOW) Urine Appearance CLEAR (CLEAR) Urine pH 5.5 (5-6) Ur Specific [place] 1.025 (1.005-1.025) POC Urine Protein Conf NEGATIVE (Negative) Urine Ketones NEGATIVE (NEGATIVE) Urine Nitrite NEGATIVE (NEGATIVE) Urine Bilirubin NEGATIVE (NEGATIVE) Urine Urobilinogen 0.2 (0-1) mg/dL Urine Leukocytes NEGATIVE (NEGATIVE) Urine WBC (Auto) NONE (0-5) /HPF Urine RBC (Auto) NONE (0-2) /HPF U Epithel Cells (Auto) NONE (FEW) /HPF Urine Bacteria (Auto) NONE (NEGATIVE) /HPF Urine RBC NEGATIVE (0-5) Be/ul Urine Mucus (Auto) SLIGHT (NEGATIVE) /HPF Ur Culture Indicated? NO Urine Glucose NEGATIVE (NEGATIVE) mg/dL 02/22/22 02/22/22 Range/Units 00:32 00:25 WBC 7.9 (4.0-10.5) x10^3/uL RBC 4.98 (4.1-5.6) x10^6/uL Hgb 15.0 (12.5-18.0) g/dL Hct 43.4 (42-50) % MCV 87.1 (78-100) fL MCH 30.1 (26-32) pg MCHC 34.6 (32-36) g/dL RDW 13.3 (11.5-14.0) % Plt Count 293 (150-450) x10^3/uL MPV 10.5 (7.5-11.0) fL Gran % 66.6 H (36.0-66.0) % Immature Gran % (Auto) 0.3 (0.00-0.4) % Nucleat RBC Rel Count 0.0 (0.00-0.1) % Eos # (Auto) 0.21 (0-0.5) x10^3/uL Immature Gran # (Auto) 0.02 (0.00-0.03) x10^3u/L Absolute Lymphs (auto) 1.56 (1.0-4.6) x10^3/uL Absolute Monos (auto) 0.80 (0.0-1.3) x10^3/uL Absolute Nucleated RBC 0.00 (0.00-0.01) x10^3u/L Lymphocytes % 19.7 L (24.0-44.0) % Monocytes % 10.1 (0.0-12.0) % Eosinophils % 2.7 (0.00-5.0) % Basophils % 0.6 (0.0-0.4) % Absolute Granulocytes 5.26 (1.4-6.9) x10^3/uL Basophils # 0.05 (0-0.4) x10^3/uL Sodium (137-145) mmol/L Potassium (3.5-5.1) mmol/L Chloride (98-107) mmol/L Carbon Dioxide (22-30) mmol/L Anion Gap (5-15) MEQ/L BUN (9-20) mg/dL Creatinine (0.66-1.25) mg/dL Estimated GFR ML/MIN Glucose (74-106) mg/dL Lactic Acid 0.7 (0.4-2.0) Calcium (8.4-10.2) mg/dL Total Bilirubin (0.2-1.3) mg/dL AST (17-59) U/L ALT (0-50) U/L Alkaline Phosphatase (38-126) U/L Troponin I (0.000-0.034) ng/mL Serum Total Protein (6.3-8.2) g/dL Albumin (3.5-5.0) g/dL Amylase (30-110) U/L Lipase (23-300) U/L Urinalys Dipstick Clnc Urine Color (YELLOW) Urine Appearance (CLEAR) Urine pH (5-6) Ur Specific [place] (1.005-1.025) POC Urine Protein Conf (Negative) Urine Ketones (NEGATIVE) Urine Nitrite (NEGATIVE) Urine Bilirubin (NEGATIVE) Urine Urobilinogen (0-1) mg/dL Urine Leukocytes (NEGATIVE) Urine WBC (Auto) (0-5) /HPF Urine RBC (Auto) (0-2) /HPF U Epithel Cells (Auto) (FEW) /HPF Urine Bacteria (Auto) (NEGATIVE) /HPF Urine RBC (0-5) Be/ul Urine Mucus (Auto) (NEGATIVE) /HPF Ur Culture Indicated? Urine Glucose (NEGATIVE) mg/dL - Progress Progress: improved, re-examined Progress Note: 02/22/22 02:58 pt states pain is much better. exam nontender now and without peritoneal signs. discussed with pt that undetected pathology may still be evolving , however pt has improved and wishes DC with out pt f/u to PMD without further w/u in ER at this time and he has the capacity to make this choice. Counseled pt/family regarding: lab results, diagnosis, need for follow-up, rad results - Departure Departure Disposition: Home Clinical Impression: Diverticul disease small and large intestine, no perforati or abscess, abdominal pain of unknown origin. Condition: Good Critical Care Time: No Referrals: WALI MONTERO [Primary Care Provider] - Follow up/PCP as directed Instructions: Diverticulosis (DC), Abdominal Pain, Adult ED Additional Instructions: although there is diverticular disease on the CT scan, we did not see a specific infection yet, were not able to determine the exact cause for certain of your pain, and there may be other infections, obstructions , or conditions not yet detected. We will treat with antibiotics to cover for early diverticulosis, but it is important to follow-up with your DrJayy for further workup, and to return meantime if not improving , vomiting, or any other symptoms of concern. also follow-up with your DrJayy for your elevated blood pressure Prescriptions: Metronidazole 500 mg [Flagyl 500 MG] 500 mg PO TID #30 tablet Levofloxacin [Levofloxacin 500 MG Tablet] 500 mg PO QAM #10 tablet
[2022-02-22] MEDS ORDERED: FLAGYL 500 MG IVPB 500 MG/100 ML BAG IV ONE (00:28)
[2022-02-22] MEDS ORDERED: Sodium Chloride 0.9% 1000 ML 1,000 ML ONE (00:28)
[2022-02-22] MEDS ORDERED: Hydromorphone 1 mg/ml Injection ONE (00:28)
[2022-02-22] MEDS ORDERED: Zofran 4 MG/2 ML VIAL ONE (00:28)
[2022-02-22 00:34] LABS: Absolute Neutrophil Ct (ANC) 5.26 x10^3/uL (1.4-6.9); Basophil (Absolute #) 0.05 x10^3/uL (0-0.4); Eosinophil % 2.7 % (0.00-5.0); Eosinophil (Absolute #) 0.21 x10^3/uL (0-0.5); Hematocrit 43.4 % (42-50); Lymphocyte (Absolute #) 1.56 x10^3/uL (1.0-4.6); Lymphocytes % 19.7 % (24.0-44.0); Mean Cell Volume 87.1 fL (78-100); Mean Corpuscular Hemoglobin 30.1 pg (26-32); Mean Corpuscular Hgb Concent. 34.6 g/dL (32-36); Mean Platelet Volume 10.5 fL (7.5-11.0); Monocytes % 10.1 % (0.0-12.0); Neutrophil % 66.6 % (36.0-66.0); Platelet Count 293 x10^3/uL (150-450); Red Blood Count 4.98 x10^6/uL (4.1-5.6); Red Cell Distribution Width 13.3 % (11.5-14.0); White Blood Count 7.9 x10^3/uL (4.0-10.5)
[2022-02-22 00:43] LABS: ALBUMIN 4.2 g/dL (3.5-5.0); ALKALINE PHOSPHATASE 84 U/L (38-126); AMYLASE 60 U/L (30-110); ANION GAP 8.9 MEQ/L (5-15); BLOOD UREA NITROGEN 17 mg/dL (9-20); CHLORIDE 104 mmol/L (98-107); Calcium 9.1 mg/dL (8.4-10.2); Carbon Dioxide 29 mmol/L (22-30); Creatinine 1 0.86 mg/dL (0.66-1.25); EST GLOMERULAR FILTRATION RATE > 60.0 ML/MIN; Glucose 99 mg/dL (74-106); LIPASE 40 U/L (23-300); Potassium 3.9 mmol/L (3.5-5.1); SGOT/AST 22 U/L (17-59); SGPT/ALT 28 U/L (0-50); SODIUM 137 mmol/L (137-145); Total Protein 7.4 g/dL (6.3-8.2)
[2022-02-22] MEDS ORDERED: PROTONIX 40 MG IV IV ONE ×2 (00:46→01:18)
[2022-02-22] MEDS ORDERED: Pepcid 20 MG VIAL IV ONE ×2 (00:46→01:18)
[2022-02-22 01:03] LABS: Appearance CLEAR (CLEAR); Bilirubin NEGATIVE (NEGATIVE); Dipstick done @ ? MAIN LAB; Glucose NEGATIVE (NEGATIVE); Ketones NEGATIVE (NEGATIVE); Mucus SLIGHT /HPF (NEGATIVE); Nitrite NEGATIVE (NEGATIVE); Ph 5.5 (5-6); Protein,Urine Dip NEGATIVE (Negative); RBC NEGATIVE Ery/ul (0-5); Specific Gravity 1.025 (1.005-1.025); Urobilinogen 0.2 mg/dL (0-1)
[2022-02-22 01:04] LABS: Urine Cultured Indicated? NO
[2022-02-22] MEDS ORDERED: LEVOFLOXACIN 750MG/150ML D5W 750 MG/150 ML BAG IV ONE (01:18)
[2022-02-22 03:03] VITALS: BP 142/78; PULSE 82
[2022-02-22 03:06] VITALS: O2SAT 96
--- NOTE | 2022-02-22 09:30 | XRAY ---
Indication: Left lower quadrant tenderness. Diverticular disease. Multiple contiguous axial images obtained through the abdomen and pelvis without contrast. Comparison: April 16, 2018 Lung bases clear again with incidental lingula calcified granuloma. Heart is not enlarged. Stomach is now markedly distended with food/fluid. Noncontrasted stomach and bowel loops nonobstructed. Several small bowel loops are now mildly fluid distended up to 2.8 cm with fluid leveling, ileus versus enteritis. There remains scattered left hemicolon diverticulosis without diverticulitis. Again previous cholecystectomy. No free fluid/air. Remaining liver, pancreas, spleen, adrenal glands, kidneys, ureters, bladder, and aorta are unremarkable for noncontrast exam. Osseous structures intact with stable left L5 spondylolysis without listhesis. Impression: 1. New mild fluid distended small bowel loops with fluid leveling, ileus versus enteritis. 2. Again colonic diverticulosis and L5 spondylolysis without listhesis. Comment: Preliminary interpretation made by C. No critical discrepancy.
== END 2022-02-22 03:34 | disposition home or self-care (01) ==
LOC: ED 22:24
DX: K57.50 Diverticulosis of both small and large intestine without perforation or abscess without bleeding (principal); R10.32 Left lower quadrant pain; R11.2 Nausea with vomiting, unspecified; E78.5 Hyperlipidemia, unspecified; I10 Essential (primary) hypertension; Z72.0 Tobacco use; Z79.899 Other long term (current) drug therapy; Z28.310 Unvaccinated for COVID-19
CPT/HCPCS: 36000; 36415; 74176; 80053; 81015; 82150; 83605; 83690; 84484; 85025; 96365; 96374; 96375; 99284; J1170; J1956; J2405

== ENCOUNTER 2022-03-19 17:57 | Emergency (ER) | payer BC ==
[2022-03-19] MEDS ORDERED: Sodium Chloride 0.9% 1000 ML 1,000 ML IV STA (18:23)
[2022-03-19] MEDS ORDERED: Zofran 4 MG/2 ML VIAL IV ONE (18:23)
[2022-03-19] MEDS ORDERED: Protonix 40MG Tablet PO ONE (18:23)
[2022-03-19] MEDS ORDERED: PROTONIX 40 MG IV IV ONE ×2 (18:26→18:27)
[2022-03-19] MEDS ORDERED: Sodium Chloride 0.9% 1000 ML 1,000 ML ONE (18:27)
[2022-03-19] MEDS ORDERED: Zofran 4 MG/2 ML VIAL ONE (18:27)
[2022-03-19 18:46] LABS: Absolute Neutrophil Ct (ANC) 5.15 x10^3/uL (1.4-6.9); Basophil (Absolute #) 0.03 x10^3/uL (0-0.4); Eosinophil % 3.4 % (0.00-5.0); Eosinophil (Absolute #) 0.24 x10^3/uL (0-0.5); Hematocrit 44.5 % (42-50); Hemoglobin 15.3 g/dL (12.5-18.0); Lymphocyte (Absolute #) 0.95 x10^3/uL (1.0-4.6); Lymphocytes % 13.3 % (24.0-44.0); Mean Cell Volume 86.2 fL (78-100); Mean Corpuscular Hemoglobin 29.7 pg (26-32); Mean Corpuscular Hgb Concent. 34.4 g/dL (32-36); Mean Platelet Volume 10.8 fL (7.5-11.0); Monocyte (Absolute #) 0.77 x10^3/uL (0.0-1.3); Monocytes % 10.8 % (0.0-12.0); Neutrophil % 71.8 % (36.0-66.0); Platelet Count 252 x10^3/uL (150-450); Red Blood Count 5.16 x10^6/uL (4.1-5.6); White Blood Count 7.2 x10^3/uL (4.0-10.5)
--- NOTE | 2022-03-19 18:58 | ERPHSYRPT ---
- History of Present Illness Time Seen by Provider: 03/19/22 18:15 Historian: patient, family Exam Limitations: no limitations Patient Subjective Stated Complaint: Abdominal pain Triage Nursing Assessment: Patient ambulated back to ED and transferred self to bed. Patient A+O X3 Patient's skin pink, warm and dry. Patient complains of abdominal pain, N/V and diarrhea since Tuesday. Abdomen soft and round with BS X 4. Physician History: This is a 46-year-old white male patient who has a history of diabetes and was started on Mounjaro medication approximately 4 weeks ago to treat his diabetes. Within a few days, the patient was seen in the emergency department with similar symptoms that he has today and that is nausea vomiting and diarrhea. Patient also has a history of diverticulitis. A CAT scan of the abdomen pelvis without contrast was performed on 02/22/2022 and this showed nonspecific enteritis. Patient states that approximately 3 days ago he had an increase in that medication. He began to have vomiting and diarrhea again. Patient was advised to come to the emergency department to receive some antiemetics and intravenous fluid and to recheck a CAT scan to make sure there is or is not an acute intra- abdominal process. His symptoms may be related to the change (increased) in his mounjaro dosage. Patient denies chest pain. He denies fever. He denies cough. He does not have shortness of breath Timing/Duration: day(s) (3) Activities at Onset: none Quality: cramping (Mild) Abdominal Pain Onset Location: generalized abdomen Pain Radiation: no radiation Severity of Pain-Max: mild Severity of Pain-Current: mild Modifying Factors: Improves With: vomiting Associated Symptoms: diarrhea, loss of appetite, nausea, vomiting Previous symptoms: same symptoms as today, no recent treatment Allergies/Adverse Reactions: No Known Drug Allergies Allergy (Verified 03/19/22 18:14) Home Medications: Omeprazole 20 MG [Prilosec 20 mg] 20 mg PO DAILY 10/31/14 [History] Fiber [Fiber Choice] 1 tab PO DAILY 10/06/15 [History] Lisinopril 20 mg [Zestril 20 MG] 20 mg PO DAILY 06/02/16 [History] Lactobacillus Combo No.10 [Probiotic] 1 each PO DAILY 04/26/18 [History] Atorvastatin Calcium 20 mg PO DAILY 01/25/22 [History] Phentermine HCl 1 tab PO DAILY 01/25/22 [History] Tirzepatide [Mounjaro] 5 mg SQ WEEKLY 01/25/22 [History] Hx Tetanus, Diphtheria Vaccination/Date Given: Yes Hx Influenza Vaccination/Date Given: No Hx Pneumococcal Vaccination/Date Given: No Immunizations Up to Date: Yes Travel Risk - International Travel Have you traveled outside of the country in past 3 weeks: No - Coronavirus Screening Are you exhibiting any of the following symptoms?: No Close contact with a COVID-19 positive Pt in past 14-21 Days: No - Vaccine Status Have you recieved a Covid-19 vaccination: No - Review of Systems Constitutional: No Symptoms Eyes: No Symptoms Ears, Nose, & Throat: No Symptoms Respiratory: No Symptoms Abdominal/Gastrointestinal: Abdominal Pain (Mild generalized cramping), Nausea, Vomiting, Diarrhea, No Constipation Genitourinary Symptoms: No Symptoms Musculoskeletal: No Symptoms Skin: No Symptoms Neurological: No Symptoms Psychological: No Symptoms Endocrine: No Symptoms Hematologic/Lymphatic: No Symptoms Immunological/Allergic: No Symptoms All Other Systems: Reviewed and Negative - Past Medical History Pertinent Past Medical History: Yes Neurological History: No Pertinent History ENT History: No Pertinent History Cardiac History: High Cholesterol, Hypertension Respiratory History: No Pertinent History Endocrine Medical History: No Pertinent History Musculoskeletal History: No Pertinent History GI Medical History: Diverticulitis, Diverticulosis, GERD, Gallbladder Disease, Hernia History: No Pertinent History Psycho-Social History: No Pertinent History Male Reproductive Disorders: No Pertinent History Other Medical History: concussion as a child - Past Surgical History Past Surgical History: Yes Neuro Surgical History: No Pertinent History Cardiac: No Pertinent History Respiratory: No Pertinent History Gastrointestinal: Cholecystectomy, Hernia Repair Genitourinary: No Pertinent History Musculoskeletal: Other Male Surgical History: No Pertinent History Other Surgical History: cyst removed left knee - Social History Smoking Status: Current every day smoker How long have you smoked: 18 yrs Exposure to second hand smoke: Yes Drug Use: none Patient Lives Alone: No - Nursing Vital Signs Nursing Vital Signs: Initial Vital Signs Temperature 97.4 F 03/19/22 18:11 Pulse Rate 80 03/19/22 18:11 Respiratory Rate 18 03/19/22 18:11 Blood Pressure 128/83 03/19/22 18:11 O2 Sat by Pulse Oximetry 97 03/19/22 18:11 Pain Scale Pain Intensity 2 - Physical Exam General Appearance: no apparent distress, alert, anxiety Eye Exam: PERRL/EOMI, eyes nml inspection Ears, Nose, Throat Exam: normal ENT inspection, moist mucous membranes Neck Exam: normal inspection, non-tender, supple, full range of motion Respiratory Exam: normal breath sounds, lungs clear, No chest tenderness, No respiratory distress Cardiovascular Exam: regular rate/rhythm, normal heart sounds, normal peripheral pulses Rectal Exam: not done Back Exam: normal inspection, normal range of motion, No CVA tenderness, No vertebral tenderness Extremity Exam: normal inspection, normal range of motion, pelvis stable Neurologic Exam: alert, oriented x 3, cooperative, adjunct faculty for medical terminology II-XII nml as tested, normal mood/affect, nml cerebellar function, nml station & gait, sensation nml Skin Exam: normal color, warm, dry Lymphatic Exam: No adenopathy SpO2 Interpretation: normal SpO2: 97 O2 Delivery: Room Air - Course Nursing assessment & vital signs reviewed: Yes Ordered Tests: Active Orders 24 hr Category Date Time Status IV Insertion STAT Care 03/19/22 18:23 Active NPO (ED) STAT Care 03/19/22 18:23 Active ABDOMEN AND PELVIS W/0 CONTRAS [CT] Stat Exams 03/19/22 18:24 Taken AMYLASE Stat Lab 03/19/22 18:15 Completed CBC W DIFF Stat Lab 03/19/22 18:15 Completed CMP Stat Lab 03/19/22 18:15 Completed LIPASE Stat Lab 03/19/22 18:15 Completed UA W/RFX CULTURE Stat Lab 03/19/22 18:25 Completed Medication Summary Generic Name Dose Route Start Last Admin Trade Name Freq PRN Reason Stop Dose Admin Sodium Chloride 500 mls @ 500 mls/hr 03/19/22 19:25 03/19/22 19:29 Sodium Chloride 0.9% 500 Ml IV 03/19/22 20:24 500 mls/hr .Q1H ONE Administration Discontinued Medications Generic Name Dose Route Start Last Admin Trade Name Freq PRN Reason Stop Dose Admin Sodium Chloride 1,000 mls @ 999 mls/hr 03/19/22 18:23 03/19/22 19:31 Sodium Chloride 0.9% 1000 Ml IV 03/19/22 19:23 Infused .Q1H1M STA Infusion Sodium Chloride Confirm 03/19/22 18:27 Sodium Chloride 0.9% 1000 Ml Administered 03/19/22 18:28 Dose 1,000 mls @ ud .ROUTE .STK-MED ONE Sodium Chloride Confirm 03/19/22 19:27 Sodium Chloride 0.9% 500 Ml Administered 03/19/22 19:28 Dose 500 mls @ ud IV .STK-MED ONE Ondansetron HCl 4 mg 03/19/22 18:23 03/19/22 18:30 Ondansetron Hcl 4 Mg/2 Ml Vial IV 03/19/22 18:24 4 mg STAT ONE Administration Ondansetron HCl Confirm 03/19/22 18:27 Ondansetron Hcl 4 Mg/2 Ml Vial Administered 03/19/22 18:28 Dose 4 mg .ROUTE .STK-MED ONE Pantoprazole Sodium 40 mg 03/19/22 18:23 03/19/22 18:26 Protonix (Pantoprazole) 40 Mg Tablet PO 03/19/22 18:24 Not Given STAT ONE Pantoprazole Sodium 40 mg 03/19/22 18:26 03/19/22 18:30 Pantoprazole 40 Mg Vial IV 03/19/22 18:27 40 mg STAT ONE Administration Pantoprazole Sodium Confirm 03/19/22 18:27 Pantoprazole 40 Mg Vial Administered 03/19/22 18:28 Dose 40 mg IV .STK-MED ONE Lab/Rad Data: Laboratory Result Diagrams 03/19/22 18:15 03/19/22 18:15 Laboratory Results 03/19/22 03/19/22 03/19/22 Range/Units 18:50 18:25 18:15 WBC (4.0-10.5) x10^3/uL RBC (4.1-5.6) x10^6/uL Hgb (12.5-18.0) g/dL Hct (42-50) % MCV (78-100) fL MCH (26-32) pg MCHC (32-36) g/dL RDW (11.5-14.0) % Plt Count (150-450) x10^3/uL MPV (7.5-11.0) fL Gran % (36.0-66.0) % Immature Gran % (Auto) (0.00-0.4) % Nucleat RBC Rel Count (0.00-0.1) % Eos # (Auto) (0-0.5) x10^3/uL Immature Gran # (Auto) (0.00-0.03) x10^3u/L Absolute Lymphs (auto) (1.0-4.6) x10^3/uL Absolute Monos (auto) (0.0-1.3) x10^3/uL Absolute Nucleated RBC (0.00-0.01) x10^3u/L Lymphocytes % (24.0-44.0) % Monocytes % (0.0-12.0) % Eosinophils % (0.00-5.0) % Basophils % (0.0-0.4) % Absolute Granulocytes (1.4-6.9) x10^3/uL Basophils # (0-0.4) x10^3/uL Sodium 131 L (137-145) mmol/L Potassium 3.9 (3.5-5.1) mmol/L Chloride 101 (98-107) mmol/L Carbon Dioxide 23 (22-30) mmol/L Anion Gap 11.6 (5-15) MEQ/L BUN 17 (9-20) mg/dL Creatinine 0.83 (0.66-1.25) mg/dL Estimated GFR > 60.0 ML/MIN Glucose 91 (74-106) mg/dL Calcium 9.0 (8.4-10.2) mg/dL Total Bilirubin 0.60 (0.2-1.3) mg/dL AST 15 L (17-59) U/L ALT 21 (0-50) U/L Alkaline Phosphatase 72 (38-126) U/L Serum Total Protein 6.7 (6.3-8.2) g/dL Albumin 3.9 (3.5-5.0) g/dL Amylase 37 (30-110) U/L Lipase 22 L (23-300) U/L Urinalys Dipstick Clnc MAIN LAB Urine Color YELLOW (YELLOW) Urine Appearance CLEAR (CLEAR) Urine pH 6.0 (5-6) Ur Specific [place] 1.010 (1.005-1.025) POC Urine Protein Conf NEGATIVE (Negative) Urine Ketones NEGATIVE (NEGATIVE) Urine Nitrite NEGATIVE (NEGATIVE) Urine Bilirubin NEGATIVE (NEGATIVE) Urine Urobilinogen 0.2 (0-1) mg/dL Urine Leukocytes NEGATIVE (NEGATIVE) Urine WBC (Auto) Not Reportable Urine RBC (Auto) 0-2 (0-2) /HPF U Epithel Cells (Auto) RARE (FEW) /HPF Urine Bacteria (Auto) Not Reportable Urine RBC NEGATIVE (0-5) Be/ul Ur Culture Indicated? NO Urine Glucose NEGATIVE (NEGATIVE) mg/dL Influenza Type A Ag NEGATIVE (NEGATIVE) Influenza Type B Ag NEGATIVE (NEGATIVE) RSV (PCR) NEGATIVE (Negative) SARS-CoV-2 (PCR) NEGATIVE (NEGATIVE) 03/19/22 Range/Units 18:15 WBC 7.2 (4.0-10.5) x10^3/uL RBC 5.16 (4.1-5.6) x10^6/uL Hgb 15.3 (12.5-18.0) g/dL Hct 44.5 (42-50) % MCV 86.2 (78-100) fL MCH 29.7 (26-32) pg MCHC 34.4 (32-36) g/dL RDW 13.0 (11.5-14.0) % Plt Count 252 (150-450) x10^3/uL MPV 10.8 (7.5-11.0) fL Gran % 71.8 H (36.0-66.0) % Immature Gran % (Auto) 0.3 (0.00-0.4) % Nucleat RBC Rel Count 0.0 (0.00-0.1) % Eos # (Auto) 0.24 (0-0.5) x10^3/uL Immature Gran # (Auto) 0.02 (0.00-0.03) x10^3u/L Absolute Lymphs (auto) 0.95 L (1.0-4.6) x10^3/uL Absolute Monos (auto) 0.77 (0.0-1.3) x10^3/uL Absolute Nucleated RBC 0.00 (0.00-0.01) x10^3u/L Lymphocytes % 13.3 L (24.0-44.0) % Monocytes % 10.8 (0.0-12.0) % Eosinophils % 3.4 (0.00-5.0) % Basophils % 0.4 (0.0-0.4) % Absolute Granulocytes 5.15 (1.4-6.9) x10^3/uL Basophils # 0.03 (0-0.4) x10^3/uL Sodium (137-145) mmol/L Potassium (3.5-5.1) mmol/L Chloride (98-107) mmol/L Carbon Dioxide (22-30) mmol/L Anion Gap (5-15) MEQ/L BUN (9-20) mg/dL Creatinine (0.66-1.25) mg/dL Estimated GFR ML/MIN Glucose (74-106) mg/dL Calcium (8.4-10.2) mg/dL Total Bilirubin (0.2-1.3) mg/dL AST (17-59) U/L ALT (0-50) U/L Alkaline Phosphatase (38-126) U/L Serum Total Protein (6.3-8.2) g/dL Albumin (3.5-5.0) g/dL Amylase (30-110) U/L Lipase (23-300) U/L Urinalys Dipstick Clnc Urine Color (YELLOW) Urine Appearance (CLEAR) Urine pH (5-6) Ur Specific [place] (1.005-1.025) POC Urine Protein Conf (Negative) Urine Ketones (NEGATIVE) Urine Nitrite (NEGATIVE) Urine Bilirubin (NEGATIVE) Urine Urobilinogen (0-1) mg/dL Urine Leukocytes (NEGATIVE) Urine WBC (Auto) Urine RBC (Auto) (0-2) /HPF U Epithel Cells (Auto) (FEW) /HPF Urine Bacteria (Auto) Urine RBC (0-5) Be/ul Ur Culture Indicated? Urine Glucose (NEGATIVE) mg/dL Influenza Type A Ag (NEGATIVE) Influenza Type B Ag (NEGATIVE) RSV (PCR) (Negative) SARS-CoV-2 (PCR) (NEGATIVE) - Progress Progress: improved Progress Note: 03/19/22 19:23 CAT scan of the abdomen pelvis shows some fluid within the small bowel and colon which may represent enterocolitis. No evidence of any other acute intra- abdominal or intrapelvic findings. Medical decision making: I feel that this patient's symptoms are related to his medication. We will make sure that he is well-hydrated and then refer him back to his prescribing provider for further evaluation and management. Patient has antiemetics at home. He will take a clear liquid diet and make sure that he is avoiding fatty greasy spicy foods. Patient states that he is feeling better. Counseled pt/family regarding: lab results, diagnosis, need for follow-up, rad results - Departure Departure Disposition: Home Clinical Impression: Adverse reaction to antidiabetic drug Condition: Stable Critical Care Time: No Referrals: WALI MONTERO [Primary Care Provider] - Follow up/PCP as directed Additional Instructions: Plenty of clear liquids. Avoid fatty greasy spicy foods. Follow-up with your prescribing provider on 03/22/2022 for further evaluation and management.
[2022-03-19 19:00] LABS: ALBUMIN 3.9 g/dL (3.5-5.0); ALKALINE PHOSPHATASE 72 U/L (38-126); AMYLASE 37 U/L (30-110); ANION GAP 11.6 MEQ/L (5-15); BLOOD UREA NITROGEN 17 mg/dL (9-20); CHLORIDE 101 mmol/L (98-107); Carbon Dioxide 23 mmol/L (22-30); Creatinine 1 0.83 mg/dL (0.66-1.25); EST GLOMERULAR FILTRATION RATE > 60.0 ML/MIN; Glucose 91 mg/dL (74-106); LIPASE 22 U/L (23-300); Potassium 3.9 mmol/L (3.5-5.1); SGOT/AST 15 U/L (17-59); SGPT/ALT 21 U/L (0-50); SODIUM 131 mmol/L (137-145); Total Protein 6.7 g/dL (6.3-8.2)
[2022-03-19 19:22] VITALS: PULSE 72
[2022-03-19 19:22] LABS: Epithelial Cells RARE /HPF (FEW); RBC 0-2 /HPF (0-2)
[2022-03-19] MEDS ORDERED: Sodium Chloride 0.9% 500 ML 500 ML IV ONE ×2 (19:25→19:27)
[2022-03-19 19:29] LABS: Appearance CLEAR (CLEAR); Bilirubin NEGATIVE (NEGATIVE); Glucose NEGATIVE (NEGATIVE); Ketones NEGATIVE (NEGATIVE)
[2022-03-19 19:30] LABS: Dipstick done @ ? MAIN LAB; Nitrite NEGATIVE (NEGATIVE); Protein,Urine Dip NEGATIVE (Negative); RBC NEGATIVE Ery/ul (0-5); Urine Cultured Indicated? NO; Urobilinogen 0.2 mg/dL (0-1)
[2022-03-19 19:33] LABS: INFLUENZA A NEGATIVE (NEGATIVE); INFLUENZA B NEGATIVE (NEGATIVE); RESPIRATORY SYNCTIAL VIRUS NEGATIVE (Negative); SARS-CoV-2 Xpert Express NEGATIVE (NEGATIVE)
[2022-03-19 20:01] VITALS: BP 131/76; O2SAT 98
--- NOTE | 2022-03-19 21:56 | XRAY ---
Indication: Abdomen pain, nausea, and diarrhea 3 days. History diverticulitis. Multiple contiguous axial images obtained through the abdomen and pelvis without contrast. Comparison: February 22, 2022 Lung bases demonstrates minimal bilateral dependent atelectasis. Stable lingula calcified granuloma. Heart not enlarged. Stomach again distended with food/fluid. Noncontrasted stomach and bowel loops nonobstructed. Again small bowel loops and now colon are mildly fluid distended with fluid leveling, ileus versus enterocolitis. Normal appendix. Again left hemicolon diverticulosis and cholecystectomy. No free fluid/air. Remaining liver, pancreas, spleen, adrenal glands, kidneys, ureters, bladder, and aorta are unremarkable for noncontrast exam. Osseous structures intact again with left L4 spondylolysis without listhesis. Impression: 1. Mild fluid distended small and large bowel loops with fluid leveling, ileus versus enterocolitis. 2. Again chronic findings including lingula calcified granuloma, colonic diverticulosis, and L4 spondylolysis without listhesis. Comment: Preliminary interpretation made by [facility]. No critical discrepancy.
== END 2022-03-19 20:04 | disposition home or self-care (01) ==
LOC: ED 17:57
DX: R11.2 Nausea with vomiting, unspecified (principal); T50.995A Adverse effect of other drugs, medicaments and biological substances, initial encounter; R19.7 Diarrhea, unspecified; E11.9 Type 2 diabetes mellitus without complications; E78.5 Hyperlipidemia, unspecified; I10 Essential (primary) hypertension; Z72.0 Tobacco use; Z79.85 Long-term (current) use of injectable non-insulin antidiabetic drugs; Z79.899 Other long term (current) drug therapy; Z28.310 Unvaccinated for COVID-19
CPT/HCPCS: 0241U; 36000; 36415; 74176; 80053; 81015; 82150; 83690; 85025; 96374; 96375; 99284; J2405

== ENCOUNTER 2024-02-06 18:01 | Emergency (ER) | payer BC ==
[2024-02-06 18:41] VITALS: TEMP 98.2
--- NOTE | 2024-02-06 19:46 | ERPHSYRPT ---
- History of Present Illness Time Seen by Provider: 02/06/24 19:20 Historian: patient, family Exam Limitations: no limitations Patient Subjective Stated Complaint: pt states vomiting and diarrhea for the past 1.5 days Triage Nursing Assessment: pt ambulated into the er; pt is axo x4; c/o vomiting; tenderness present to upper left quad; hypoactive bowel sounds in all quads; c/o N/V/D; skin PDW; no respiratory distress present; vitals wnl Physician History: This is a 48-year-old white male patient of Dr. London who was brought into the emergency department by private vehicle escorted by his spouse. Over the last m onth, the patient has had intermittent episodes of nausea vomiting and diarrhea. Typically it occurs over the weekend. The patient has been on Ozempic. A little bit less than 2 weeks ago, the patient was seen by his primary care provider who told the patient to stop his Ozempic. Patient was told to stop his Ozempic. Despite stopping his Ozempic he had another episode that occurred this weekend. He still having some nausea vomiting diarrhea symptoms. He has never had a colonoscopy or upper endoscopy in the past. Patient denies abdominal pain at this time. He denies chest pain and he denies shortness of breath. Patient does have a history gastroesophageal reflux disease, hyperlipidemia. There is been no other new medications. He does smoke tobacco cigarettes but it is not often. Timing/Duration: day(s) (1.5), intermittent Activities at Onset: none Quality: other (No pain) Severity of Pain-Max: none Severity of Pain-Current: none Modifying Factors: Improves With: vomiting Associated Symptoms: diarrhea, loss of appetite, nausea, vomiting Previous symptoms: same symptoms as today, no recent treatment Allergies/Adverse Reactions: No Known Drug Allergies Allergy (Verified 02/06/24 18:27) Home Medications: Omeprazole 20 MG [Prilosec 20 mg] 20 mg PO DAILY 10/31/14 [History] Atorvastatin Calcium 20 mg PO DAILY 01/25/22 [History] Dextroamphetamine/Amphetamine [Adderall Xr 30 mg Capsule] 30 mg PO DAILY 02/06/24 [History] Hx Tetanus, Diphtheria Vaccination/Date Given: No Hx Influenza Vaccination/Date Given: No Hx Pneumococcal Vaccination/Date Given: No Travel Risk - International Travel Have you traveled outside of the country in past 3 weeks: No - Emerging Infectious Disease Are you exhibiting symptoms associated with any current EIDs: Yes Symptoms: Diarrhea, Vomitting - Review of Systems Constitutional: No Symptoms Eyes: No Symptoms Ears, Nose, & Throat: No Symptoms Respiratory: No Symptoms Cardiac: No Symptoms Abdominal/Gastrointestinal: Nausea, Vomiting, Diarrhea, Appetite Changes, No Abdominal Pain, No Constipation Genitourinary Symptoms: No Symptoms Musculoskeletal: No Symptoms Skin: No Symptoms Neurological: No Symptoms Psychological: No Symptoms Endocrine: No Symptoms Hematologic/Lymphatic: No Symptoms Immunological/Allergic: No Symptoms All Other Systems: Reviewed and Negative - Past Medical History Pertinent Past Medical History: Yes Neurological History: No Pertinent History ENT History: No Pertinent History Cardiac History: High Cholesterol, Hypertension Respiratory History: No Pertinent History Endocrine Medical History: No Pertinent History Musculoskeletal History: No Pertinent History GI Medical History: Diverticulitis, Diverticulosis, GERD, Gallbladder Disease, Hernia History: No Pertinent History Psycho-Social History: No Pertinent History Male Reproductive Disorders: No Pertinent History Other Medical History: concussion as a child - Past Surgical History Past Surgical History: Yes Neuro Surgical History: No Pertinent History Cardiac: No Pertinent History Respiratory: No Pertinent History Gastrointestinal: Cholecystectomy, Hernia Repair Genitourinary: No Pertinent History Musculoskeletal: Other Male Surgical History: No Pertinent History Other Surgical History: cyst removed left knee - Social History Smoking Status: Light tobacco smoker How long have you smoked: 18 yrs Exposure to second hand smoke: Yes Drug Use: none Patient Lives Alone: No - Social Determinants of Health Will the patient participate in the screening: Yes Do you worry about a steady place to live?: No Do you have any problems with any of the following?: No known problems In the past 12 months,have you had to go without utilities?: No Transportation Issues: No Has anyone in your support network made you feel unsafe?: No Have you or anyone in your house had to go without enough: No - Nursing Vital Signs Nursing Vital Signs: Initial Vital Signs Pulse Rate 70 02/06/24 18:30 Respiratory Rate 17 02/06/24 18:30 Blood Pressure 138/100 02/06/24 18:30 O2 Sat by Pulse Oximetry 97 02/06/24 18:30 Pain Scale Pain Intensity 0 - Physical Exam SpO2: 97 - Course Nursing assessment & vital signs reviewed: Yes Ordered Tests: Active Orders 24 hr Category Date Time Status IV Insertion STAT Care 02/06/24 19:46 Active ABDOMEN AND PELVIS W/0 CONTRAS [CT] Stat Exams 02/06/24 19:46 Taken AMYLASE Stat Lab 02/06/24 19:00 Completed CBC W DIFF Stat Lab 02/06/24 19:00 Completed CMP Stat Lab 02/06/24 19:00 Completed LIPASE Stat Lab 02/06/24 19:00 Completed UA W/RFX UR CULTURE Stat Lab 02/06/24 20:42 Completed Medication Summary Discontinued Medications Generic Name Dose Route Start Last Admin Trade Name Anpuam PRN Reason Stop Dose Admin Sodium Chloride 1,000 mls @ 999 mls/hr 02/06/24 19:46 02/06/24 21:06 Sodium Chloride 0.9% 1000 Ml IV 02/06/24 20:46 Infused .Q1H1M STA Infusion Sodium Chloride Confirm 02/06/24 19:53 Sodium Chloride 0.9% 1000 Ml Administered 02/06/24 19:54 Dose 1,000 mls @ ud .ROUTE .STK-MED ONE Ondansetron HCl 4 mg 02/06/24 19:46 02/06/24 19:54 Ondansetron Hcl 4 Mg/2 Ml Vial IV 02/06/24 19:47 4 mg STAT ONE Administration Ondansetron HCl Confirm 02/06/24 19:53 Ondansetron Hcl 4 Mg/2 Ml Vial Administered 02/06/24 19:54 Dose 4 mg .ROUTE .STK-MED ONE Lab/Rad Data: Laboratory Result Diagrams 02/06/24 19:00 02/06/24 19:00 Laboratory Results 02/06/24 02/06/24 02/06/24 Range/Units 20:42 19:00 19:00 WBC 8.2 (4.23-9.07) x10^3/uL RBC 5.33 (4.63-6.08) x10^6/uL Hgb 15.8 (13.7-17.5) g/dL Hct 45.9 (40.1-51.0) % MCV 86.1 (79.0-92.2) fL MCH 29.6 (25.7-32.2) pg MCHC 34.4 (32.3-36.5) g/dL RDW 13.5 (11.6-14.4) % Plt Count 303 (163-337) x10^3/uL MPV 10.6 (9.4-12.4) fL Gran % 73.6 H (34.0-67.9) % Immature Gran % (Auto) 0.2 (0.001-0.429) % Nucleat RBC Rel Count 0.0 (0.00-0.2) % Eos # (Auto) 0.17 (0.04-0.54) x10^3/uL Immature Gran # (Auto) 0.02 (0.001-0.031) x10^3u/L Absolute Lymphs (auto) 1.19 L (1.32-3.57) x10^3/uL Absolute Monos (auto) 0.76 (0.30-0.82) x10^3/uL Absolute Nucleated RBC 0.00 (0.00-0.012) x10^3u/L Lymphocytes % 14.5 L (21.8-53.1) % Monocytes % 9.2 (5.3-12.2) % Eosinophils % 2.1 (0.8-7.0) % Basophils % 0.4 (0.2-1.2) % Absolute Granulocytes 6.06 H (1.78-5.38) x10^3/uL Basophils # 0.03 (0.01-0.08) x10^3/uL Sodium 135 (135-145) mmol/L Potassium 3.9 (3.5-5.1) mmol/L Chloride 103 (98-107) mmol/L Carbon Dioxide 22 (22-30) mmol/L Anion Gap 14.7 (5-15) MEQ/L BUN 13 (9-20) mg/dL Creatinine 0.72 (0.66-1.25) mg/dL Estimated GFR 114.1 ML/MIN Glucose 154 H (74-106) mg/dL Calcium 9.1 (8.4-10.2) mg/dL Total Bilirubin 0.50 (0.2-1.3) mg/dL AST 29 (17-59) U/L ALT 42 (0-50) U/L Alkaline Phosphatase 64 (38-126) U/L Serum Total Protein 7.3 (6.3-8.2) g/dL Albumin 4.2 (3.5-5.0) g/dL Amylase 60 (30-110) U/L Lipase 19 L (23-300) U/L Urine Color Yellow (Yellow) Urine Appearance Clear (Clear) Urine pH 6.0 (4.6-8.0) Ur Specific [place] >=1.030 A (1.005-1.030) Urine Protein Trace A (Negative) Urine Glucose (UA) Negative (Negative) mg/dL Urine Ketones Negative (Negative) Urine Blood Negative (Negative) Urine Nitrite Negative (Negative) Urine Bilirubin Negative (Negative) Urine Urobilinogen 1.0 A (0.2) mg/dL Ur Leukocyte Esterase Negative (Negative) U Hyaline Cast (Auto) NONE SEEN (0-2) /LPF Urine Microscopic RBC 0-2 (0-5) /HPF Urine Microscopic WBC 0-2 (0-5) /HPF Ur Epithelial Cells None Seen (None Seen) /HPF Urine Bacteria None Seen (None Seen) /HPF Urine Culture Reflexed NO (NO) - Progress Progress: improved Progress Note: 02/06/24 21:07 My medical decision making and the assignment of moderate complexity to this patient's medical issue today is based on review of the patient's past medical history, review of the patient's medication list, review patient drug allergy list, history present illness and physical findings on examination. The workup in this patient includes placement of intravenous line, infusion of normal saline solution, infusion of Zofran, CBC, CMP, amylase, lipase, C. difficile toxin of stool, urinalysis, and CT scan of the abdomen pelvis without contrast. Differential diagnosis includes but is not limited to C. difficile colitis, other type of colitis, pancreatitis, viral illness 02/06/24 21:37 I interpreted the patient's laboratory data results. Based on the laboratory data results, there are no acute, emergent medical issues. CT scan of the abdomen pelvis was interpreted by the radiologist and I reviewed the impression. The impression states again, moderate distal enteritis with tiny amount of free fluid but no free air. There is stable diverticulosis w ithout diverticulitis. There is L4 spondylosis without lithiasis Counseled pt/family regarding: lab results, diagnosis, need for follow-up, rad results Medical Desision Making - Independent Historian Additional History obtained from: Spouse - Diagnostic Testing Diagnostic test were ordered, analyzed, and reviewed by me: Yes Radiological Interpretation: Reviewed by me, Teleradiologist Report - Risk of complications The pt has a mod risk of morbidity or mortality based on: Need for prescription drug management - Departure Departure Disposition: Home Clinical Impression: Enteritis Condition: Stable Critical Care Time: No Referrals: WALI LONDON [Primary Care Provider] - Follow up/PCP as directed Additional Instructions: Drink plenty of clear liquids before advancing your diet. Take your antibiotics and other medications as prescribed. Call your primary care provider tomorrow, 02/07/2024, to make arrangements for follow-up appointment and to be seen in the next 3 to 5 days. Prescriptions: Metronidazole 500 mg [Flagyl 500 MG] 500 mg PO TID #21 tablet
[2024-02-06 19:51] LABS: Absolute Neutrophil Ct (ANC) 6.06 x10^3/uL (1.78-5.38); BASOPHIL % 0.4 % (0.2-1.2); Basophil (Absolute #) 0.03 x10^3/uL (0.01-0.08); Eosinophil % 2.1 % (0.8-7.0); Eosinophil (Absolute #) 0.17 x10^3/uL (0.04-0.54); Hematocrit 45.9 % (40.1-51.0); Hemoglobin 15.8 g/dL (13.7-17.5); IMMATURE GRAN # 0.02 x10^3u/L (0.001-0.031); IMMATURE GRAN % 0.2 % (0.001-0.429); Lymphocyte (Absolute #) 1.19 x10^3/uL (1.32-3.57); Lymphocytes % 14.5 % (21.8-53.1); Mean Cell Volume 86.1 fL (79.0-92.2); Mean Corpuscular Hemoglobin 29.6 pg (25.7-32.2); Mean Corpuscular Hgb Concent. 34.4 g/dL (32.3-36.5); Mean Platelet Volume 10.6 fL (9.4-12.4); Monocyte (Absolute #) 0.76 x10^3/uL (0.30-0.82); Monocytes % 9.2 % (5.3-12.2); Neutrophil % 73.6 % (34.0-67.9); Platelet Count 303 x10^3/uL (163-337); Red Blood Count 5.33 x10^6/uL (4.63-6.08); Red Cell Distribution Width 13.5 % (11.6-14.4); White Blood Count 8.2 x10^3/uL (4.23-9.07)
[2024-02-06] MEDS ORDERED: Sodium Chloride 0.9% 1000 ML 1,000 ML ONE (19:53)
[2024-02-06] MEDS ORDERED: Zofran 4 MG/2 ML VIAL ONE (19:53)
[2024-02-06] MEDS: Sodium Chloride 0.9% 1000 ML 1,000 ML IV STA (19:54)
[2024-02-06] MEDS: Zofran 4 MG/2 ML VIAL IV ONE (19:54)
[2024-02-06 20:00] LABS: ALBUMIN 4.2 g/dL (3.5-5.0); ANION GAP 14.7 MEQ/L (5-15); BILIRUBIN,TOTAL 0.5 mg/dL (0.2-1.3); Calcium 9.1 mg/dL (8.4-10.2); Creatinine 1 0.72 mg/dL (0.66-1.25); EST GLOMERULAR FILTRATION RATE 114.1 ML/MIN; Potassium 3.9 mmol/L (3.5-5.1); Total Protein 7.3 g/dL (6.3-8.2)
[2024-02-06 20:50] LABS: Appearance Clear (Clear); Bacteria None Seen /HPF (None Seen); Bilirubin Negative (Negative); Blood Negative (Negative); Epithelial Cells None Seen /HPF (None Seen); Glucose, Urine Negative (Negative); Hyaline Casts NONE SEEN /LPF (0-2); Ketones Negative (Negative); Leukocyte Esterase Negative (Negative); Nitrite Negative (Negative); Protein,Urine Dip Trace (Negative); RBC 0-2 /HPF (0-5); Specific Gravity >=1.030 (1.005-1.030); WBC 0-2 /HPF (0-5)
[2024-02-06 20:51] LABS: ADD URINE CULTURE? NO (NO)
[2024-02-06] MEDS ORDERED: Flagyl 500 MG ONE (21:42)
[2024-02-06] MEDS: Flagyl 500 MG PO ONE (21:43)
[2024-02-06 22:13] VITALS: BP 135/105; PULSE 66; RESP 14; O2SAT 98
--- NOTE | 2024-02-07 08:51 | XRAY ---
Indication: Vomiting and diarrhea. Multiple contiguous axial images obtained through the abdomen and pelvis without contrast. Comparison: March 19, 2022 Lung bases clear with stable incidental lingula calcified granuloma. Heart not enlarged. Noncontrasted stomach and bowel loops appear nonobstructed. Small bowel loops, especially ileum again appears mildly fluid distended with circumferential wall thickening and stranding favoring enteritis. Tiny pelvic free fluid presumed reactive. No walled off fluid collection or free air. Normal appendix. Again scattered descending/sigmoid diverticulosis and cholecystectomy. Remaining liver, pancreas, spleen, adrenal glands, kidneys, ureters, bladder, and aorta are unremarkable for noncontrast exam. Osseous structures intact again with left L4 spondylolysis without listhesis. Impression: 1. Fluid distended small bowel loops with wall thickening and stranding favoring enteritis. Tiny reactive free fluid. No walled off fluid collection or free air. 2. Again chronic findings including colonic diverticulosis and L4 spondylosis without listhesis.
== END 2024-02-06 22:14 | disposition home or self-care (01) ==
LOC: ED 18:01
DX: K52.9 Noninfective gastroenteritis and colitis, unspecified (principal); R11.10 Vomiting, unspecified; I10 Essential (primary) hypertension; E78.5 Hyperlipidemia, unspecified
CPT/HCPCS: 36000; 36415; 74176; 80053; 81001; 82150; 83690; 85025; 96360; 96374; 99284; J2405; A9270-GY